=== PATIENT | female | born 1950 | race Caucasian/White ===

== ENCOUNTER 2021-08-01 16:13 | Inpatient (IN) | payer MEDICARE, OTHER ==
[~2021-08-01] VITALS: Ht 167.6 cm; Wt 107.8 kg
[2021-08-01] MEDS ORDERED: CARB1TAB22 PO (19:24)
[2021-08-01] MEDS ORDERED: POLY17PO5 PO (19:24)
[2021-08-01] MEDS ORDERED: CITA20TA9 PO (19:24)
[2021-08-01] MEDS ORDERED: TRAZ-120 PO (19:24)
[2021-08-01] MEDS ORDERED: METF500T16 PO (19:24)
[2021-08-01] MEDS ORDERED: PRAS10TA9 PO (19:24)
[2021-08-01] MEDS ORDERED: RISP0.5T24 PO (19:24)
[2021-08-01 19:34] VITALS: BP 181/98
[2021-08-01] MEDS ORDERED: POLYETHYLENE GLYCOL 3350 17 GM PACKET. PO PRN (19:45)
[2021-08-01] MEDS ORDERED: PIOG15TA42 PO (20:25)
[2021-08-01] MEDS ORDERED: ACET325T21 PO (20:25)
[2021-08-01] MEDS: traZODone 50 MG TABLET. PO SCH (20:59)
[2021-08-01] MEDS: CARBIDOPA/LEVODOPA 25/100MG TABLET PO SCH (21:00)
[2021-08-01] MEDS: ACETAMINOPHEN 325 MG TABLET PO PRN (21:00)
[2021-08-01] MEDS: risperiDONE 0.5 MG TABLET. PO SCH (21:00)
[2021-08-01] MEDS ORDERED: MAG HYDROX/AL HYDROX/SIMETH 30 ML ORAL.SUSP PO PRN (21:30)
[2021-08-01] MEDS ORDERED: METHYL SALICYLATE/MENTHOL TOPICAL OINTMENT 57GM TUBE. TP PRN (21:30)
[2021-08-01 22:21] LABS: BACTERIA,URINE 0 /HPF (0-FEW); BILIRUBIN,URINE NEG (NEG); CLARITY,URINE CLEAR; COLOR,URINE YELLOW; GLUCOSE,URINE NEG (NEG); NITRITE,URINE NEG (NEG); RBC,URINE 0 /HPF (0-2); SQUAMOUS EPITHELIAL CELL,UR OCC /LPF; UROBILINOGEN,URINE 0.2 mg/dL (0.2 mg/dL); WBC,URINE OCC /HPF (0-4)
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
[2021-08-02 06:05] VITALS: BP 156/85
[2021-08-02 06:56] LABS: BASO % 1 % (0-3); EOS # 0.2 x10^3/uL (0.0-0.7); EOS % 4 % (0-3); HEMATOCRIT 39.8 % (36.0-47.0); HEMOGLOBIN 13.3 g/dL (12.0-15.5); LYMPH # 2.1 x10^3/uL (1.0-4.8); LYMPH % 33 % (24-48); MEAN CORPUSCULAR HEMOGLOBIN 30 pg (25-35); MEAN CORPUSCULAR HGB CONC 33 g/dL (31-37); MEAN CORPUSCULAR VOLUME 90 fL (79-100); MONO # 0.5 x10^3/uL (0.0-1.1); MONO % 8 % (0-9); NEUT # 3.4 x10^3uL (1.8-7.7); NEUT % 55 % (31-73); PLATELET COUNT 166 x10^3/uL (140-400); RED BLOOD COUNT 4.42 x10^6/uL (3.50-5.40); RED CELL DISTRIBUTION WIDTH 14.1 % (11.5-14.5); WHITE BLOOD COUNT 6.3 x10^3/uL (4.0-11.0)
[2021-08-02 07:06] LABS: ALBUMIN 3.2 g/dL (3.4-5.0); CALCIUM 9.2 mg/dL (8.5-10.1); CREATININE 0.8 mg/dL (0.6-1.0); GFR 70.7; MAGNESIUM 1.8 mg/dL (1.8-2.4); POTASSIUM 3.8 mmol/L (3.5-5.1); TOTAL BILIRUBIN 0.4 mg/dL (0.2-1.0); TOTAL PROTEIN 6.3 g/dL (6.4-8.2)
[2021-08-02] MEDS: PRASUGREL 10 MG TABLET. PO SCH (08:08)
[2021-08-02] MEDS: CARBIDOPA/LEVODOPA 25/100MG TABLET PO SCH ×4 (08:08→20:01)
[2021-08-02] MEDS: risperiDONE 0.5 MG TABLET. PO SCH ×3 (08:08→20:01)
[2021-08-02] MEDS: metFORMIN 500 MG TABLET PO SCH ×2 (08:08→17:19)
[2021-08-02] MEDS: PIOGLITAZONE 15 MG TABLET. PO SCH (08:09)
[2021-08-02] MEDS ORDERED: CITALOPRAM 20 MG TABLET. PO SCH (09:00)
[2021-08-02] MEDS: ACETAMINOPHEN 325 MG TABLET PO PRN ×2 (12:14→20:41)
[2021-08-02 16:43] VITALS: BP 121/65
[2021-08-02 19:12] LABS: THYROID STIM HORMONE (TSH) 1.101 uIU/mL (0.358-3.740)
[2021-08-02] MEDS: NYSTATIN TOPICAL POWDER 15GM BOTTLE. TP SCH (20:01)
[2021-08-02] MEDS: traZODone 50 MG TABLET. PO SCH (20:01)
[2021-08-02] MEDS: LITHIUM CARBONATE 300 MG TABLET PO SCH (20:01)
[2021-08-02 22:08] LABS: THYROXINE 9.5 ug/dL (4.5-12.0)
--- NOTE | 2021-08-02 22:47 | PDOC ---
Exam Note: Efren Note: Please also refer to the separate dictated note~for this date of service dictated separately.~Patient seen individually. Discussed the patient with Nursing staff reviewed the chart.~Reviewed interim history and current functioning. Reviewed vital signs,~Labs/ Radiology~and current medications noted below. Continue current treatment with the changes noted in the dictated addendum note Assessment: Vital Signs/I&O: Vital Signs Date Time Temp Pulse Resp B/P (MAP) Pulse Ox O2 Delivery O2 Flow Rate FiO2 08/02/21 16:43 98.0 66 18 121/65 (83) 98 08/02/21 06:05 Room Air I & O 08/01/21 08/01/21 08/02/21 15:00 23:00 07:00 Intake Total 120 ml Balance 120 ml Labs: Laboratory Tests Test 08/02/21 06:20 08/02/21 14:55 08/02/21 16:43 08/02/21 19:16 White Blood Count 6.3 x10^3/uL (4.0-11.0) Red Blood Count 4.42 x10^6/uL (3.50-5.40) Hemoglobin 13.3 g/dL (12.0-15.5) Hematocrit 39.8 % (36.0-47.0) Mean Corpuscular Volume 90 fL (79-100) Mean Corpuscular Hemoglobin 30 pg (25-35) Mean Corpuscular Hemoglobin Concent 33 g/dL (31-37) Red Cell Distribution Width 14.1 % (11.5-14.5) Platelet Count 166 x10^3/uL (140-400) Neutrophils (%) (Auto) 55 % (31-73) Lymphocytes (%) (Auto) 33 % (24-48) Monocytes (%) (Auto) 8 % (0-9) Eosinophils (%) (Auto) 4 % (0-3) H Basophils (%) (Auto) 1 % (0-3) Neutrophils # (Auto) 3.4 x10^3uL (1.8-7.7) Lymphocytes # (Auto) 2.1 x10^3/uL (1.0-4.8) Monocytes # (Auto) 0.5 x10^3/uL (0.0-1.1) Eosinophils # (Auto) 0.2 x10^3/uL (0.0-0.7) Basophils # (Auto) 0.0 x10^3/uL (0.0-0.2) D-Dimer (Dede) 0.87 mg/L (0.00-0.50) H Sodium Level 135 mmol/L (136-145) L Potassium Level 3.8 mmol/L (3.5-5.1) Chloride Level 103 mmol/L (98-107) Carbon Dioxide Level 29 mmol/L (21-32) Anion Gap 3 (6-14) L Blood Urea Nitrogen 8 mg/dL (7-20) Creatinine 0.8 mg/dL (0.6-1.0) Estimated GFR (Cockcroft-Gault) 70.7 BUN/Creatinine Ratio 10 (6-20) Glucose Level 151 mg/dL (70-99) H Calcium Level 9.2 mg/dL (8.5-10.1) Magnesium Level 1.8 mg/dL (1.8-2.4) Iron Level 84 ug/dL (50-170) Total Iron Binding Capacity 268 ug/dL (250-450) Iron Saturation 31 % (15-34) Total Bilirubin 0.4 mg/dL (0.2-1.0) Aspartate Amino Transferase (AST) 30 U/L (15-37) Alanine Aminotransferase (ALT) 28 U/L (14-59) Alkaline Phosphatase 87 U/L (46-116) Total Protein 6.3 g/dL (6.4-8.2) L Albumin 3.2 g/dL (3.4-5.0) L Albumin/Globulin Ratio 1.0 (1.0-1.7) Triglycerides Level 162 mg/dL (0-150) H Cholesterol Level 124 mg/dL (0-200) LDL Cholesterol, Calculated 66 mg/dL (0-100) VLDL Cholesterol, Calculated 32 mg/dL (0-40) Non-HDL Cholesterol Calculated 98 mg/dL (0-129) HDL Cholesterol 26 mg/dL (40-60) L Cholesterol/HDL Ratio 4.0 Vitamin B12 Level 863 pg/mL (247-911) 25-Hydroxy Vitamin D Total 27.8 ng/mL (30-100) L Thyroid Stimulating Hormone (TSH) 1.101 uIU/mL (0.358-3.740) Thyroxine (T4) 9.5 ug/dL (4.5-12.0) Total Triiodothyronine (TT3) 117 ng/dL (71-180) Treponema pallidum Antibody Nonreactive (Nonreactive) Glucose (Fingerstick) 148 mg/dL (70-99) H 128 mg/dL (70-99) H 175 mg/dL (70-99) H Current Medications: Meds: Current Medications Medications (Trade) Dose Ordered Sig/Brynn Route PRN Reason Start Time Stop Time Status Last Admin Dose Admin Metformin HCl (Glucophage) 500 mg BIDWMEALS PO 08/02/21 08:00 08/02/21 17:19 Prasugrel (Effient) 10 mg DAILY PO 08/02/21 09:00 08/02/21 08:08 Pioglitazone HCl (Actos) 15 mg DAILY PO 08/02/21 09:00 08/02/21 08:09 Nystatin (Nystop) 1 devan BID TP 08/02/21 21:00 08/02/21 20:01 [place] Carbonate 300 mg HS PO 08/02/21 21:00 08/02/21 20:01 I have reviewed the current psychotropics carefully including drug interactions. Risk benefit ratio favors no change other than as noted in my dictated progress note. Diagnosis: Problems: (1) Bipolar disorder, current episode mixed, severe, with psychotic features (2) Anxiety disorder, unspecified (3) Impulse control disorder, unspecified HERBER SCHMITZ MD Aug 02, 2021 22:47
--- NOTE | 2021-08-02 23:19 | CONS ---
DATE OF CONSULTATION: 08/02/2021 ATTENDING PHYSICIAN: Dr. Schmitz We are asked to see this patient for medical consultation. HISTORY OF PRESENT ILLNESS: This is a very pleasant 71-year-old female from [place], [place]. She lives independently in an apartment complex. She has been depressed lately with some suicidal ideations. She is grieving the loss of her recent friend. She has had diminished self-care. She sees Dr. Mart Holly who is a colleague of mine. She used to work at [employer] and I have actually met her in the past over 20 years ago[address] She sees Dr. Buitrago as a primary care physician. When I spoke with her, her affect was very pleasant. She did not appear suicidal. She was very alert, saying we had a very good conversation. Her main complaint indicates she is diabetic and she has intertriginous area with fungal infection and she wants nystatin powder. I reassured her we will get this available for her. PAST MEDICAL HISTORY: Significant for type 2 diabetes, degenerative arthritis, underlying depression, long QT syndrome, bipolar disorder and generalized anxiety. There is some early Parkinson's disease as well as celiac disease. She has had a hairline fracture of the left ankle recently that has been managed. CURRENT MEDICATIONS: Include the following: She takes Tylenol, Sinemet one tablet q.i.d., citalopram, metformin, Actos, MiraLax, Effient, risperidone, and trazodone. ALLERGIES: She has no known drug allergies. SOCIAL HISTORY: She is a nonsmoker, nondrinker. FAMILY HISTORY: Her family history is interesting, her father at an early age, he was a senior assistant manager. She is retired. 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 REVIEW OF SYSTEMS: Significant for the recent hairline fracture. All other systems reviewed and turned to be negative. PHYSICAL EXAMINATION: GENERAL: When I saw her, this is a pleasant, alert female. VITAL SIGNS: Her initial vital signs showed a blood pressure of 156/85. She was afebrile, oxygen saturation 96% on room air, pulse is 85 and regular. HEENT: Head is without trauma. The pupils are reactive. Sclerae nonicteric. Oropharynx is clear. NECK: Supple. LUNGS: Otherwise clear. CARDIOVASCULAR: Regular heart tones. No gallops. ABDOMEN: Obese, protuberant. No organomegaly. Normoactive bowel sounds. EXTREMITIES: Showed the left ankle to be immobilized. There is minimal swelling. NEUROLOGIC: Function focally intact. Speech is fluent. 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 SKIN: Warm and dry. PERTINENT LABORATORY STUDIES: The hemoglobin is 13.3 g/dL with a white count of 6300. Electrolytes all within normal range. Nonfasting blood sugar 151 mg/dL. Transaminases and liver functions were all normal. ASSESSMENT: 1. This 71-year-old female has some suicidal ideations. Currently, she has a very normal good affect, and we had a very productive conversation. 2. Type 2 diabetes. 3. Mild intertriginous fungal infection related to diabetes. 4. Obesity. 5. History of bipolar disorder. 6. Early Parkinson's disease, although it is not clinically severe. RECOMMENDATIONS: 1. I have reviewed her medication. We should continue that at the scheduled dose. 2. I would recommend continuation of her nystatin powder twice a day. 3. She is stable from medical standpoint. Thank you again for asking me to see this patient for medical consultation. We should gladly follow along during her inpatient stay. ALEK/ROXANA DR: ALEK/raquel TID: [id number] CC: HERBER SCHMITZ MD
[2021-08-03 05:43] LABS: HEMOGLOBIN A1C 8.1 % (4.8-5.6)
[2021-08-03 06:38] VITALS: BP 168/91
--- NOTE | 2021-08-03 06:44 | EKG ---
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
[2021-08-03] MEDS: metFORMIN 500 MG TABLET PO SCH ×2 (08:20→17:10)
[2021-08-03] MEDS: CARBIDOPA/LEVODOPA 25/100MG TABLET PO SCH ×4 (08:20→20:10)
[2021-08-03] MEDS: PRASUGREL 10 MG TABLET. PO SCH (08:20)
[2021-08-03] MEDS: PIOGLITAZONE 15 MG TABLET. PO SCH (08:20)
[2021-08-03] MEDS: NYSTATIN TOPICAL POWDER 15GM BOTTLE. TP SCH ×2 (08:21→22:40)
[2021-08-03] MEDS: risperiDONE 0.5 MG TABLET. PO SCH ×3 (08:21→20:10)
[2021-08-03] MEDS: ACETAMINOPHEN 325 MG TABLET PO PRN ×3 (08:23→20:10)
[2021-08-03 16:26] VITALS: BP 148/83
[2021-08-03] MEDS: traZODone 50 MG TABLET. PO SCH (20:09)
[2021-08-03] MEDS: LITHIUM CARBONATE 300 MG TABLET PO SCH (20:10)
--- NOTE | 2021-08-03 22:15 | PDOC ---
Exam Note: Efren Note: Please also refer to the separate dictated note~for this date of service dictated separately.~Patient seen individually. Discussed the patient with Nursing staff reviewed the chart.~Reviewed interim history and current functioning. Reviewed vital signs,~Labs/ Radiology~and current medications noted below. Continue current treatment with the changes noted in the dictated addendum note Assessment: Vital Signs/I&O: Vital Signs Date Time Temp Pulse Resp B/P (MAP) Pulse Ox O2 Delivery O2 Flow Rate FiO2 08/03/21 16:26 97.4 85 18 148/83 (104) 95 08/03/21 06:38 Room Air I & O 08/02/21 08/02/21 08/03/21 15:00 23:00 07:00 Intake Total 720 ml 780 ml Balance 720 ml 780 ml Labs: Laboratory Tests Test 08/03/21 07:38 08/03/21 11:26 08/03/21 16:34 08/03/21 19:22 Glucose (Fingerstick) 168 mg/dL (70-99) H 238 mg/dL (70-99) H 164 mg/dL (70-99) H 193 mg/dL (70-99) H Current Medications: Meds: Laboratory Tests Test 08/03/21 07:38 08/03/21 11:26 08/03/21 16:34 08/03/21 19:22 Glucose (Fingerstick) 168 mg/dL 238 mg/dL 164 mg/dL 193 mg/dL Current Medications Medications (Trade) Dose Ordered Sig/Brynn Route PRN Reason Start Time Stop Time Status Last Admin Dose Admin Carbidopa/Levodopa (Sinemet 25/100) 1 tab QID PO 08/01/21 21:00 08/03/21 20:10 Citalopram Hydrobromide (CeleXA) 20 mg DAILY PO 08/02/21 09:00 08/01/21 21:37 DC Metformin HCl (Glucophage) 500 mg BIDWMEALS PO 08/02/21 08:00 08/03/21 17:10 Polyethylene Glycol (miraLAX) 17 gm PRN DAILY PRN PO CONSTIPATION 08/01/21 19:45 Prasugrel (Effient) 10 mg DAILY PO 08/02/21 09:00 08/03/21 08:20 Risperidone (RisperDAL) 0.5 mg TID PO 08/01/21 21:00 08/03/21 20:10 Trazodone HCl (Desyrel) 50 mg HS PO 08/01/21 21:00 08/03/21 20:09 Acetaminophen (Tylenol) 650 mg PRN Q4HRS PRN PO PAIN 08/01/21 20:30 08/03/21 20:10 Pioglitazone HCl (Actos) 15 mg DAILY PO 08/02/21 09:00 08/03/21 08:20 Multi-Ingredient Ointment (Analgesic [place]) 1 devan PRN QID PRN TP MUSCLE PAIN 08/01/21 21:30 Al Hydroxide/Mg Hydroxide (Mylanta Plus Xs) 15 ml PRN AFTMEALHC PRN PO DYSPEPSIA 08/01/21 21:30 Nystatin (Nystop) 1 devan BID TP 08/02/21 21:00 08/03/21 08:21 [place] Carbonate 300 mg HS PO 08/02/21 21:00 08/03/21 20:10 I have reviewed the current psychotropics carefully including drug interactions. Risk benefit ratio favors no change other than as noted in my dictated progress note. Diagnosis: Problems: (1) Impulse control disorder, unspecified (2) Anxiety disorder, unspecified (3) Bipolar disorder, current episode mixed, severe, with psychotic features HERBER SCHMITZ MD Aug 03, 2021 22:15
[2021-08-04 06:20] VITALS: BP 115/71
--- NOTE | 2021-08-04 06:36 | PDOC ---
Exam Note: Efren Note: This note is a late entry for 08/02/2021 covers elements not covered in my initial note. Subjective: The patient was seen individually in the evening of 08/02/2021 with Abbi SALCEDO, discussed and reviewed the chart. The patient slept 5-1/2 hours previous night. She has been pleasant, takes medications whole. She denies suicidal ideation, plans or intent. I reviewed her history at length and she has responded very well to lithium in the past. We will have to have someone at the facility dispense her medications daily. Dr. Holly, her psychiatrist has also sent a message that concurring that lithium may be an appropriate option for her bipolar disorder. We will initiate at 300 mg h.s. Check CBC, CMP, lithium level in 3 days. Review of Systems: Impaired ambulation in wheelchair. No CV, , pulmonary, eye system symptoms on review. Mental Status Exam: The patient is reasonably oriented. Speech coherent, less pressured. Abstraction fair. Computation impaired. Language function intact. Mood and affect is improved. Laboratory Data: Reviewed. Impression: Bipolar disorder depressed with psychotic features. Anxiety disorder unspecified. Impulse control disorder unspecified. Plan: Continue psychotropics from initial note. Start lithium 300 mg h.s. Check labs and a level. Adjust to reach therapeutic level. Maintain Risperdal 0.5 mg t.i.d., trazodone 50 mg h.s. She remains on Sinemet for Parkinsons. Assessment: Vital Signs/I&O: Vital Signs Date Time Temp Pulse Resp B/P (MAP) Pulse Ox O2 Delivery O2 Flow Rate FiO2 08/04/21 06:20 97.9 82 16 115/71 (86) 98 08/03/21 06:38 Room Air I & O 08/03/21 08/03/21 08/04/21 15:00 23:00 07:00 Intake Total 480 ml 600 ml Balance 480 ml 600 ml Labs: Laboratory Tests Test 08/03/21 07:38 08/03/21 11:26 08/03/21 16:34 08/03/21 19:22 Glucose (Fingerstick) 168 mg/dL (70-99) H 238 mg/dL (70-99) H 164 mg/dL (70-99) H 193 mg/dL (70-99) H Current Medications: Meds: Laboratory Tests Test 08/03/21 07:38 08/03/21 11:26 08/03/21 16:34 08/03/21 19:22 Glucose (Fingerstick) 168 mg/dL 238 mg/dL 164 mg/dL 193 mg/dL Current Medications Medications (Trade) Dose Ordered Sig/Brynn Route PRN Reason Start Time Stop Time Status Last Admin Dose Admin Carbidopa/Levodopa (Sinemet 25/100) 1 tab QID PO 08/01/21 21:00 08/03/21 20:10 Citalopram Hydrobromide (CeleXA) 20 mg DAILY PO 08/02/21 09:00 08/01/21 21:37 DC Metformin HCl (Glucophage) 500 mg BIDWMEALS PO 08/02/21 08:00 08/03/21 17:10 Polyethylene Glycol (miraLAX) 17 gm PRN DAILY PRN PO CONSTIPATION 08/01/21 19:45 Prasugrel (Effient) 10 mg DAILY PO 08/02/21 09:00 08/03/21 08:20 Risperidone (RisperDAL) 0.5 mg TID PO 08/01/21 21:00 08/03/21 20:10 Trazodone HCl (Desyrel) 50 mg HS PO 08/01/21 21:00 08/03/21 20:09 Acetaminophen (Tylenol) 650 mg PRN Q4HRS PRN PO PAIN 08/01/21 20:30 08/03/21 20:10 Pioglitazone HCl (Actos) 15 mg DAILY PO 08/02/21 09:00 08/03/21 08:20 Multi-Ingredient Ointment (Analgesic [place]) 1 devan PRN QID PRN TP MUSCLE PAIN 08/01/21 21:30 Al Hydroxide/Mg Hydroxide (Mylanta Plus Xs) 15 ml PRN AFTMEALHC PRN PO DYSPEPSIA 08/01/21 21:30 Nystatin (Nystop) 1 devan BID TP 08/02/21 21:00 08/03/21 22:40 [place] Carbonate 300 mg HS PO 08/02/21 21:00 08/03/21 20:10 I have reviewed the current psychotropics carefully including drug interactions. Risk benefit ratio favors no change other than as noted in my dictated progress note. Diagnosis: Problems: (1) Impulse control disorder, unspecified (2) Anxiety disorder, unspecified (3) Bipolar disorder, current episode mixed, severe, with psychotic features HERBER SCHMITZ MD Aug 04, 2021 06:36
--- NOTE | 2021-08-04 06:47 | PDOC ---
Exam Note: fEren Note: This note is a late entry for 08/03/2021 covers elements not covered in my initial note. Subjective: The patient was reviewed at treatment team meeting individually in the morning on 08/03/2021 with Jennifer Pearson (social professionals), Paty, activity therapy and Abbi SALCEDO, discussed and reviewed the chart. The patient slept 6 hours previous night. Records from Dr. Carroll is still awaited but note is made of Dr. Jones support for lithium for her bipolar disorder. Also discussed in the evening with Judith Loya RN later in the evening. Review of Systems: Impaired ambulation in wheelchair. No CV, , pulmonary, eye system symptoms on review. Mental Status Exam: The patient is reasonably oriented. Speech coherent less pressured. Abstraction fair. Computation impaired. Language function intact. Mood and affect is remains labile, less so than before. Laboratory Data: Reviewed. Impression: Bipolar 1 disorder mixed with psychotic features. Anxiety disorder unspecified. Impulse control disorder unspecified. Plan: Continue psychotropics from initial note. Adjust further as clinically indicated. Assessment: Vital Signs/I&O: Vital Signs Date Time Temp Pulse Resp B/P (MAP) Pulse Ox O2 Delivery O2 Flow Rate FiO2 08/04/21 06:20 97.9 82 16 115/71 (86) 98 08/03/21 06:38 Room Air I & O 08/03/21 08/03/21 08/04/21 15:00 23:00 07:00 Intake Total 480 ml 600 ml Balance 480 ml 600 ml Labs: Laboratory Tests Test 08/03/21 07:38 08/03/21 11:26 08/03/21 16:34 08/03/21 19:22 Glucose (Fingerstick) 168 mg/dL (70-99) H 238 mg/dL (70-99) H 164 mg/dL (70-99) H 193 mg/dL (70-99) H Current Medications: Meds: Laboratory Tests Test 08/03/21 07:38 08/03/21 11:26 08/03/21 16:34 08/03/21 19:22 Glucose (Fingerstick) 168 mg/dL 238 mg/dL 164 mg/dL 193 mg/dL Current Medications Medications (Trade) Dose Ordered Sig/Brynn Route PRN Reason Start Time Stop Time Status Last Admin Dose Admin Carbidopa/Levodopa (Sinemet 25/100) 1 tab QID PO 08/01/21 21:00 08/03/21 20:10 Citalopram Hydrobromide (CeleXA) 20 mg DAILY PO 08/02/21 09:00 08/01/21 21:37 DC Metformin HCl (Glucophage) 500 mg BIDWMEALS PO 08/02/21 08:00 08/03/21 17:10 Polyethylene Glycol (miraLAX) 17 gm PRN DAILY PRN PO CONSTIPATION 08/01/21 19:45 Prasugrel (Effient) 10 mg DAILY PO 08/02/21 09:00 08/03/21 08:20 Risperidone (RisperDAL) 0.5 mg TID PO 08/01/21 21:00 08/03/21 20:10 Trazodone HCl (Desyrel) 50 mg HS PO 08/01/21 21:00 08/03/21 20:09 Acetaminophen (Tylenol) 650 mg PRN Q4HRS PRN PO PAIN 08/01/21 20:30 08/03/21 20:10 Pioglitazone HCl (Actos) 15 mg DAILY PO 08/02/21 09:00 08/03/21 08:20 Multi-Ingredient Ointment (Analgesic [place]) 1 devan PRN QID PRN TP MUSCLE PAIN 08/01/21 21:30 Al Hydroxide/Mg Hydroxide (Mylanta Plus Xs) 15 ml PRN AFTMEALHC PRN PO DYSPEPSIA 08/01/21 21:30 Nystatin (Nystop) 1 devan BID TP 08/02/21 21:00 08/03/21 22:40 [place] Carbonate 300 mg HS PO 08/02/21 21:00 08/03/21 20:10 I have reviewed the current psychotropics carefully including drug interactions. Risk benefit ratio favors no change other than as noted in my dictated progress note. Diagnosis: Problems: (1) Bipolar disorder, current episode mixed, severe, with psychotic features (2) Anxiety disorder, unspecified (3) Impulse control disorder, unspecified HERBER SCHMITZ MD Aug 04, 2021 06:47
[2021-08-04] MEDS: PRASUGREL 10 MG TABLET. PO SCH (08:29)
[2021-08-04] MEDS: metFORMIN 500 MG TABLET PO SCH ×2 (08:29→17:31)
[2021-08-04] MEDS: NYSTATIN TOPICAL POWDER 15GM BOTTLE. TP SCH ×2 (08:29→21:04)
[2021-08-04] MEDS: PIOGLITAZONE 15 MG TABLET. PO SCH (08:30)
[2021-08-04] MEDS: CARBIDOPA/LEVODOPA 25/100MG TABLET PO SCH ×4 (08:30→21:04)
[2021-08-04] MEDS: risperiDONE 0.5 MG TABLET. PO SCH ×3 (08:30→21:04)
[2021-08-04] MEDS: ACETAMINOPHEN 325 MG TABLET PO PRN ×3 (08:32→21:13)
[2021-08-04 16:06] VITALS: BP 122/62
[2021-08-04] MEDS: traZODone 50 MG TABLET. PO SCH (21:04)
[2021-08-04] MEDS: LITHIUM CARBONATE 300 MG TABLET PO SCH (21:04)
--- NOTE | 2021-08-04 22:01 | PDOC ---
Exam Note: Efren Note: Please also refer to the separate dictated note~for this date of service dictated separately.~Patient seen individually. Discussed the patient with Nursing staff reviewed the chart.~Reviewed interim history and current functioning. Reviewed vital signs,~Labs/ Radiology~and current medications noted below. Continue current treatment with the changes noted in the dictated addendum note Assessment: Vital Signs/I&O: Vital Signs Date Time Temp Pulse Resp B/P (MAP) Pulse Ox O2 Delivery O2 Flow Rate FiO2 08/04/21 16:06 97.5 75 18 122/62 (82) 99 08/03/21 06:38 Room Air I & O 08/03/21 08/03/21 08/04/21 15:00 23:00 07:00 Intake Total 480 ml 600 ml Balance 480 ml 600 ml Labs: Laboratory Tests Test 08/04/21 07:56 Glucose (Fingerstick) 163 mg/dL (70-99) H Current Medications: Meds: Laboratory Tests Test 08/04/21 07:56 Glucose (Fingerstick) 163 mg/dL Current Medications Medications (Trade) Dose Ordered Sig/Brynn Route PRN Reason Start Time Stop Time Status Last Admin Dose Admin Carbidopa/Levodopa (Sinemet 25/100) 1 tab QID PO 08/01/21 21:00 08/04/21 21:04 Citalopram Hydrobromide (CeleXA) 20 mg DAILY PO 08/02/21 09:00 08/01/21 21:37 DC Metformin HCl (Glucophage) 500 mg BIDWMEALS PO 08/02/21 08:00 08/04/21 17:31 Polyethylene Glycol (miraLAX) 17 gm PRN DAILY PRN PO CONSTIPATION 08/01/21 19:45 Prasugrel (Effient) 10 mg DAILY PO 08/02/21 09:00 08/04/21 08:29 Risperidone (RisperDAL) 0.5 mg TID PO 08/01/21 21:00 08/04/21 21:04 Trazodone HCl (Desyrel) 50 mg HS PO 08/01/21 21:00 08/04/21 21:04 Acetaminophen (Tylenol) 650 mg PRN Q4HRS PRN PO PAIN 08/01/21 20:30 08/04/21 21:13 Pioglitazone HCl (Actos) 15 mg DAILY PO 08/02/21 09:00 08/04/21 08:30 Multi-Ingredient Ointment (Analgesic [place]) 1 devan PRN QID PRN TP MUSCLE PAIN 08/01/21 21:30 Al Hydroxide/Mg Hydroxide (Mylanta Plus Xs) 15 ml PRN AFTMEALHC PRN PO DYSPEPSIA 08/01/21 21:30 Nystatin (Nystop) 1 devan BID TP 08/02/21 21:00 08/04/21 21:04 [place] Carbonate 300 mg HS PO 08/02/21 21:00 08/04/21 21:04 I have reviewed the current psychotropics carefully including drug interactions. Risk benefit ratio favors no change other than as noted in my dictated progress note. Diagnosis: Problems: (1) Impulse control disorder, unspecified (2) Anxiety disorder, unspecified (3) Bipolar disorder, current episode mixed, severe, with psychotic features HERBER SCHMITZ MD Aug 04, 2021 22:01
[2021-08-05 06:15] VITALS: BP 108/66
[2021-08-05] MEDS: risperiDONE 0.5 MG TABLET. PO SCH ×3 (08:22→20:52)
[2021-08-05] MEDS: PRASUGREL 10 MG TABLET. PO SCH (08:23)
[2021-08-05] MEDS: PIOGLITAZONE 15 MG TABLET. PO SCH (08:23)
[2021-08-05] MEDS: NYSTATIN TOPICAL POWDER 15GM BOTTLE. TP SCH ×2 (08:23→20:52)
[2021-08-05] MEDS: ACETAMINOPHEN 325 MG TABLET PO PRN ×2 (08:23→12:24)
[2021-08-05] MEDS: CARBIDOPA/LEVODOPA 25/100MG TABLET PO SCH ×4 (08:23→20:52)
[2021-08-05] MEDS: metFORMIN 500 MG TABLET PO SCH ×2 (08:23→17:26)
[2021-08-05 10:10] LABS: HEMATOCRIT 43.2 % (36.0-47.0); HEMOGLOBIN 14.2 g/dL (12.0-15.5); RED BLOOD COUNT 4.75 x10^6/uL (3.50-5.40); RED CELL DISTRIBUTION WIDTH 14.1 % (11.5-14.5); WHITE BLOOD COUNT 5.9 x10^3/uL (4.0-11.0)
[2021-08-05 10:26] LABS: ALBUMIN 3.6 g/dL (3.4-5.0); ALBUMIN/GLOBULIN RATIO 1.1 (1.0-1.7); CALCIUM 9.8 mg/dL (8.5-10.1); CREATININE 0.8 mg/dL (0.6-1.0); GFR 70.7; TOTAL BILIRUBIN 0.4 mg/dL (0.2-1.0); TOTAL PROTEIN 6.9 g/dL (6.4-8.2)
[2021-08-05 16:05] VITALS: BP 133/83
[2021-08-05] MEDS: LITHIUM CARBONATE 300 MG TABLET PO SCH (20:51)
[2021-08-05] MEDS: traZODone 50 MG TABLET. PO SCH (20:51)
[2021-08-06 06:35] VITALS: BP 122/72
[2021-08-06] MEDS: metFORMIN 500 MG TABLET PO SCH ×2 (08:22→17:25)
[2021-08-06] MEDS: NYSTATIN TOPICAL POWDER 15GM BOTTLE. TP SCH ×2 (08:22→20:12)
[2021-08-06] MEDS: ACETAMINOPHEN 325 MG TABLET PO PRN ×2 (08:22→12:21)
[2021-08-06] MEDS: PIOGLITAZONE 15 MG TABLET. PO SCH (08:22)
[2021-08-06] MEDS: CARBIDOPA/LEVODOPA 25/100MG TABLET PO SCH ×4 (08:22→20:12)
[2021-08-06] MEDS: risperiDONE 0.5 MG TABLET. PO SCH ×3 (08:23→20:12)
[2021-08-06] MEDS: PRASUGREL 10 MG TABLET. PO SCH (08:23)
--- NOTE | 2021-08-06 12:01 | PDOC ---
Exam Note: Efren Note: This note is a late entry for 08/04/2021 covers elements not covered in my initial note. Subjective: The patient was seen individually in the evening of 08/04/2021 with Mary SALCEDO, discussed and reviewed the chart. The patient slept 6 hours previous night. She has denied suicidal ideation during the day today but this evening as I met with her in her room, she was extremely anxious, distraught, tearful stating she was fearful of another demented male patient who was just admitted to the unit. I did discuss with nursing staff and they will separate the two of them. She is tolerating the lithium and the level will be checked the morning of 08/05. Review of Systems: Impaired ambulation in wheelchair. No CV, , pulmonary, eye system symptoms on review. She does complain of anxiety. Mental Status Exam: The patient is reasonably oriented. Speech coherent. Abstraction fair. Computation impaired. Language function intact. Attention span short. Mood and affect is remains somewhat grandiose, labile at times and other times depressed. No suicidal ideation. Laboratory Data: Reviewed. Impression: Bipolar 1 disorder mixed with psychotic features. Anxiety disorder unspecified. Impulse control disorder unspecified. Plan: Continue psychotropics from initial note. Check lithium level. Adjust thereafter. Maintain Risperdal 0.5 mg t.i.d. She remains on Sinemet for her Parkinsons. Make further adjustments as clinically indicated. Please be noted Dr. Brice will cover for me from 08/05 through 08/16/2021. Assessment: Vital Signs/I&O: Vital Signs Date Time Temp Pulse Resp B/P (MAP) Pulse Ox O2 Delivery O2 Flow Rate FiO2 08/06/21 06:35 98.0 71 18 122/72 (89) 98 08/03/21 06:38 Room Air I & O 08/05/21 08/05/21 08/06/21 15:00 23:00 07:00 Intake Total 840 ml 360 ml Balance 840 ml 360 ml Labs: Laboratory Tests Test 08/06/21 07:37 Glucose (Fingerstick) 148 mg/dL (70-99) H Current Medications: Meds: Laboratory Tests Test 08/06/21 07:37 Glucose (Fingerstick) 148 mg/dL Current Medications Medications (Trade) Dose Ordered Sig/Brynn Route PRN Reason Start Time Stop Time Status Last Admin Dose Admin Carbidopa/Levodopa (Sinemet 25/100) 1 tab QID PO 08/01/21 21:00 08/06/21 08:22 Citalopram Hydrobromide (CeleXA) 20 mg DAILY PO 08/02/21 09:00 08/01/21 21:37 DC Metformin HCl (Glucophage) 500 mg BIDWMEALS PO 08/02/21 08:00 08/06/21 08:22 Polyethylene Glycol (miraLAX) 17 gm PRN DAILY PRN PO CONSTIPATION 08/01/21 19:45 Prasugrel (Effient) 10 mg DAILY PO 08/02/21 09:00 08/06/21 08:23 Risperidone (RisperDAL) 0.5 mg TID PO 08/01/21 21:00 08/06/21 08:23 Trazodone HCl (Desyrel) 50 mg HS PO 08/01/21 21:00 08/05/21 20:51 Acetaminophen (Tylenol) 650 mg PRN Q4HRS PRN PO PAIN 08/01/21 20:30 08/06/21 08:22 Pioglitazone HCl (Actos) 15 mg DAILY PO 08/02/21 09:00 08/06/21 08:22 Multi-Ingredient Ointment (Analgesic [place]) 1 devan PRN QID PRN TP MUSCLE PAIN 08/01/21 21:30 Al Hydroxide/Mg Hydroxide (Mylanta Plus Xs) 15 ml PRN AFTMEALHC PRN PO DYSPEPSIA 08/01/21 21:30 Nystatin (Nystop) 1 devan BID TP 08/02/21 21:00 08/06/21 08:22 [place] Carbonate 300 mg HS PO 08/02/21 21:00 08/05/21 20:51 I have reviewed the current psychotropics carefully including drug interactions. Risk benefit ratio favors no change other than as noted in my dictated progress note. Diagnosis: Problems: (1) Impulse control disorder, unspecified (2) Anxiety disorder, unspecified (3) Bipolar disorder, current episode mixed, severe, with psychotic features HERBER SCHMITZ MD Aug 06, 2021 12:01
[2021-08-06 15:52] VITALS: BP 133/79
[2021-08-06] MEDS: LITHIUM CARBONATE 300 MG TABLET PO SCH (20:12)
[2021-08-06] MEDS: traZODone 50 MG TABLET. PO SCH (20:12)
--- NOTE | 2021-08-06 20:15 | PN ---
DATE: 08/05/2021 SUBJECTIVE: The patient was seen today, met with the staff. Chart was reviewed. also covering for Dr. Lopez. This is a late entry for the service date 08/05/2021. Staff reports increased anxiety, fearful and also delusional, having visual hallucinations. OBSERVATION: VITAL SIGNS: Temperature 97.3, blood pressure 108/66, pulse 75, respirations 16, O2 sat 97%. Slept about 5 hours last night. Her appetite is fair. CURRENT MEDICATIONS: The patient's medications reviewed. She is currently on lithium carbonate 300 mg at night, trazodone 50 mg at night, Risperdal 0.5 mg 3 times a day. She is also on Sinemet 25/100 4 times a day. LABORATORY DATA: The patient's behavior remains the same. The patient also having difficulty with her thinking processes. ASSESSMENT: 1. Bipolar disorder, mixed episode with psychotic features. 2. Impulse control disorder, unspecified. PLAN: To continue the current treatment plan. Length of stay is 7-[address]: Jose TID: [id number]
--- NOTE | 2021-08-07 00:12 | PN ---
DATE: 08/06/2021 SUBJECTIVE: The patient was seen today, met with the staff. Chart was reviewed and also covering for Dr. Lopez. Staff reports that she has been expressing negative thinking, suicidal thoughts and made a statement that she does not want to be on lithium and if she is going to be sent home with lithium, she is going to kill herself. After confronting her about a statement, the patient denied that she is really suicidal, but she has a lot of fear and anxiety about taking lithium. The patient also stated she is afraid she may overdose on lithium. The patient given explanations about the medication, the benefits, side effects and also to monitor her medication regularly and also blood levels and then the patient settled. OBSERVATION: VITAL SIGNS: Temperature 98, blood pressure 127/79, pulse 71, respirations 18, O2 sat 98%. GENERAL: Slept about 6 hours last night. CURRENT MEDICATIONS: The patient's current medications include lithium carbonate 300 mg at night, trazodone 50 mg at night, Risperdal 0.5 mg t.i.d. She is also on Sinemet. The patient currently not having any psychotic symptoms. No overt manic symptoms. The patient admits she has been depressed off and on for several years. LABORATORY DATA: The patient's lab reviewed. The patient is not having any side effects to the medications. ASSESSMENT: 1. Bipolar disorder, mixed with psychotic features. 2. Impulse control disorder, unspecified. PLAN: To continue with treatment. LENGTH OF STAY: Seven days. ALMAZ DR: Jose TID: [id number]
[2021-08-07 06:12] VITALS: BP 105/62
[2021-08-07] MEDS: CARBIDOPA/LEVODOPA 25/100MG TABLET PO SCH ×4 (08:16→20:10)
[2021-08-07] MEDS: risperiDONE 0.5 MG TABLET. PO SCH ×3 (08:16→20:10)
[2021-08-07] MEDS: PIOGLITAZONE 15 MG TABLET. PO SCH (08:16)
[2021-08-07] MEDS: NYSTATIN TOPICAL POWDER 15GM BOTTLE. TP SCH ×2 (08:16→20:10)
[2021-08-07] MEDS: metFORMIN 500 MG TABLET PO SCH ×2 (08:16→16:58)
[2021-08-07] MEDS: PRASUGREL 10 MG TABLET. PO SCH (08:17)
[2021-08-07] MEDS: ACETAMINOPHEN 325 MG TABLET PO PRN ×2 (09:28→17:02)
--- NOTE | 2021-08-07 13:16 | TX PLAN ---
Interdisciplinary Tx Plan Admission Information Aug 01, 2021 at 19:26 Legal Status (on Admission): Voluntary DPOA/Guardian Name: Pt is a self-sign Contact Other Contact Name: Reji Gillespie Other Contact Verified Code Status: Full Code Allergies: Coded Allergies: No Known Drug Allergies (Unverified , 08/01/21) Diagnoses Primary Diagnosis: Bipolar, Depression Problem in Patient's Words: "I tried to kill myself a couple weeks ago. In the process I fell off the bed and they sent me to the hospital". Additional Admission Comments: According to the intake, pt is SI and has a plan to cut self with nails or push pins in the wall, grieving loss of friend and decreased self-care Problems Active Problems: labile mood SI thoughts Inactive Problems: medication compliant Pt Strengths/Limitations Ability for [place]: Fair Cognitive Functioning/Ability: Fair Communication Skills/Ability: Fair Financial Resources: Fair Insight/Judgement: Fair Intellectual Ability: Fair Physical Health: Fair Social Skills: Poor Stability in Family: Poor Stability in School/Work: Poor Verbal Skills: Good Discharge Criteria Discharge Criteria: Able meet basic life need, No need for close observ., Adequate arrangements @DC, Verbal commit aftercare, Improved behavior, Improved mood/thought Preliminary Discharge Plan Preliminary DC Plan: Other Special Precautions Fall Risk: Low Initial D/C Plan Potential to return to rehab once ready for discharge. Identified Discharge Needs: continued psychiatric follow-up consider nursing Currently Utilized Resources Currently Utilized Resources/P: Primary Care Physician Psychiatrist Counselor Identified Problems/Hx/Goals Objectives/Short-Term Goals Short Term Goals: Dec. Anxiety/Panic, Dec. Symp. Depression, No Suicidal/Bambi. ideation, Promote Coping Skill Short Term Goals in Patient's: Get my meds together and be more stable Interventions/Frequency Staff Interventions/Frequency&: Psychiatrist to assess pt at least 3x per week for medication management. Social Work to assess pt at least 2x per week to identify barriers to care and finalize discharge plans. Nursing to assess medication side effects, behavior modification and complete 15 minute checks daily. Encourage participation in group activities (if applicable) or1:1 engagement based off activity dept goals. History Vocational History: Pt worked at [employer] for 23 years. Education: Pt graduated the 12th grade, then attended school at [employer] in [place] for her BA. in Maltese and Library Science. Pt then received two Masters in Psychology and Library Science. Community Follow-up PCP Psychiatry Counseling Treatment Plan Explained Patient/Improvement Spec had this treatment plan explained to him/her as indicated by the signature below and has been given the opportunity to ask questions and make suggestions: Date: Patient/Improvement Spec Signature: Patient/Improvement Spec Decline: No (Pt is an active participant withing her POC.) KAYLIN FREEMAN Aug 07, 2021 13:16
[2021-08-07 15:59] VITALS: BP 138/85
[2021-08-07] MEDS: LITHIUM CARBONATE 300 MG TABLET PO SCH (20:10)
[2021-08-07] MEDS: traZODone 50 MG TABLET. PO SCH (20:10)
[2021-08-08 05:15] VITALS: BP 122/59
[2021-08-08] MEDS: PRASUGREL 10 MG TABLET. PO SCH (08:44)
[2021-08-08] MEDS: risperiDONE 0.5 MG TABLET. PO SCH ×3 (08:44→20:12)
[2021-08-08] MEDS: CARBIDOPA/LEVODOPA 25/100MG TABLET PO SCH ×4 (08:44→20:12)
[2021-08-08] MEDS: NYSTATIN TOPICAL POWDER 15GM BOTTLE. TP SCH ×2 (08:44→20:12)
[2021-08-08] MEDS: PIOGLITAZONE 15 MG TABLET. PO SCH (08:44)
[2021-08-08] MEDS: metFORMIN 500 MG TABLET PO SCH ×2 (08:44→17:23)
[2021-08-08 15:59] VITALS: BP 149/79
[2021-08-08] MEDS: traZODone 50 MG TABLET. PO SCH (20:12)
[2021-08-08] MEDS: LITHIUM CARBONATE 300 MG TABLET PO SCH (20:12)
[2021-08-08] MEDS: ACETAMINOPHEN 325 MG TABLET PO PRN (20:18)
--- NOTE | 2021-08-09 01:18 | PN ---
This is a late entry for the service date 08/07/2021. SUBJECTIVE: The patient was seen today, met with the staff, chart reviewed. Staff reports continued behavior problems, constantly talking about suicide when she leaves this place. The patient also focused on her medications including lithium almost to the point of being obsessive, worried about being on it, worried about the side effects. The patient is asking repeatedly the same question. The patient denies of having made any suicidal attempt recently. The patient also states she is not suicidal at this time, but when she leaves, she may become suicidal because she may forget to take her lithium. The patient denies of any active suicidal thoughts or plans at this time. The patient apparently has experienced multiple losses of several members of the family in the past and also periods of depression. OBSERVATION: VITAL SIGNS: Temperature 98.2, blood pressure 105/62, pulse 75, respirations 18, O2 sat 97%. GENERAL: Slept about 6 hours last night. The patient's appetite improved. CURRENT MEDICATIONS: Include lithium carbonate 300 mg at night, trazodone 50 mg at night, Risperdal 0.5 mg 3 times a day. The patient is currently not exhibiting any psychotic symptoms. The patient is also on Sinemet. LABORATORY DATA: The patient's lab reviewed. ASSESSMENT: 1. Bipolar disorder, mixed with psychotic features. 2. Impulse control disorder, unspecified. PLAN: To continue with the treatment. LENGTH OF STAY: [address]: Jose TID: [id number]
--- NOTE | 2021-08-09 01:26 | PN ---
DATE: 08/08/2021 SUBJECTIVE: The patient was seen today, met with the staff, chart reviewed and also covering for Dr. Lopez. The patient continues to have problems with the negative thinking, having suicidal thoughts, but no specific plans. The patient also has some obsessive compulsive thinking. She is fixated about her medications, mostly lithium and she is also indecisive at times. The patient is afraid she may stop taking lithium after discharge and may become suicidal. OBSERVATION: VITAL SIGNS: Temperature 98.1, blood pressure 150/53, pulse 72, respirations 18, O2 sat 93%. Slept about 7 hours last night. The patient's appetite is fair. CURRENT MEDICATIONS: Include lithium carbonate 300 mg at night, trazodone 50 mg at night, Risperdal 0.5 mg 3 times a day. She is also on Sinemet. The patient is currently not exhibiting any psychotic symptoms. The patient has a tendency to obsess over things. Some intrusive thoughts. The patient admits to going through depression off and on over the years. LABORATORY DATA: The patient's lab reviewed. ASSESSMENT: 1. Bipolar disorder, mixed with psychotic features. 2. Impulse control disorder, unspecified. PLAN: To continue with the treatment. LENGTH OF STAY: 7 days. DEVAN/MACI DR: DEVAN/raquel TID: [id number]
--- NOTE | 2021-08-09 03:31 | PN ---
DATE: 08/08/2021 SUBJECTIVE: The patient was seen today, met with the staff. Chart was reviewed and also covering for Dr. Lopez. Staff reports increased crying, tearful, thoughts of self-harm. The patient exhibiting fluctuating behavior. The patient mainly obsessed with her medications mostly lithium. The patient currently denies suicidal. The patient also having problems with the cognition sometimes. The patient also lacking insight to her problems. OBSERVATION: VITAL SIGNS: Stable. The patient's sleep has improved. CURRENT MEDICATIONS: The patient's current medications include lithium carbonate 300 mg at night, trazodone 50 mg at night and Risperdal 0.5 mg t.i.d. She is also on Sinemet. LABORATORY DATA: The patient's lab reviewed. ASSESSMENT: 1. Bipolar disorder, mixed with psychotic features. 2. Impulse control disorder, unspecified. PLAN: To continue with the treatment. LENGTH OF STAY: [address]: Jose TID: [id number]
[2021-08-09 05:48] VITALS: BP 100/65
[2021-08-09] MEDS: PRASUGREL 10 MG TABLET. PO SCH (08:42)
[2021-08-09] MEDS: CARBIDOPA/LEVODOPA 25/100MG TABLET PO SCH ×4 (08:42→20:44)
[2021-08-09] MEDS: metFORMIN 500 MG TABLET PO SCH ×2 (08:42→17:23)
[2021-08-09] MEDS: PIOGLITAZONE 15 MG TABLET. PO SCH (08:42)
[2021-08-09] MEDS: risperiDONE 0.5 MG TABLET. PO SCH ×3 (08:42→20:44)
[2021-08-09] MEDS: NYSTATIN TOPICAL POWDER 15GM BOTTLE. TP SCH ×2 (08:47→20:44)
[2021-08-09] MEDS ORDERED: FLU VACC QUAD 21-22 (6MOS+) PF 0.5 ML SYRINGE. VAX IM ONE (09:00)
[2021-08-09 15:36] VITALS: BP 116/76
[2021-08-09] MEDS: LITHIUM CARBONATE 300 MG TABLET PO SCH (20:44)
[2021-08-09] MEDS: traZODone 50 MG TABLET. PO SCH (20:44)
--- NOTE | 2021-08-10 03:10 | PN ---
DATE: 08/09/2021 SUBJECTIVE: The patient was seen today, met with the staff, chart reviewed and also covering for Dr. Lopez. Staff reports increased anxiety, agitation at times and frequently talking about suicide and seems to have high level of anxiety with regard to other medications including lithium. The patient's lithium level is 0.4. OBSERVATION: VITAL SIGNS: Temperature 98, blood pressure 114/72, pulse 84, respirations 18 and O2 sat 94%. GENERAL: Slept about 6 hours last night. The patient's appetite is normal. CURRENT MEDICATIONS: Include lithium carbonate 300 mg at night, trazodone 50 mg at night, Risperdal 0.5 mg 3 times a day. The patient is also on Sinemet 25/100 one tablet 4 times daily. LABORATORY DATA: The patient's lab reviewed. The patient is not having any other physical complaint. ASSESSMENT: 1. Bipolar disorder, mixed with psychotic features. 2. Impulse control disorder, unspecified. PLAN: To continue with the treatment. LENGTH OF STAY: 7 days. MANUELA/FLORENCIA DR: Jose TID: [id number]
[2021-08-10 06:31] VITALS: BP 106/67
[2021-08-10] MEDS: metFORMIN 500 MG TABLET PO SCH ×2 (08:36→17:19)
[2021-08-10] MEDS: NYSTATIN TOPICAL POWDER 15GM BOTTLE. TP SCH ×2 (08:36→21:14)
[2021-08-10] MEDS: PIOGLITAZONE 15 MG TABLET. PO SCH (08:37)
[2021-08-10] MEDS: risperiDONE 0.5 MG TABLET. PO SCH ×3 (08:37→21:13)
[2021-08-10] MEDS: PRASUGREL 10 MG TABLET. PO SCH (08:37)
[2021-08-10] MEDS: CARBIDOPA/LEVODOPA 25/100MG TABLET PO SCH ×4 (08:37→21:13)
[2021-08-10] MEDS: ACETAMINOPHEN 325 MG TABLET PO PRN (13:40)
[2021-08-10 15:55] VITALS: BP 110/63
[2021-08-10 20:00] VITALS: BP 109/68
[2021-08-10] MEDS: LITHIUM CARBONATE 300 MG TABLET PO SCH (21:13)
[2021-08-10] MEDS: traZODone 50 MG TABLET. PO SCH (21:14)
--- NOTE | 2021-08-11 02:10 | PN ---
DATE: 08/10/2021 SUBJECTIVE: The patient was seen today, met with the staff, chart was reviewed and also covering for Dr. Lopez. Also participated in the treatment review meeting today. The patient apparently eating 100% of her meals. She constantly obsessed with her lithium. The patient has not verbalized any suicidal thoughts or plans. OBSERVATION: VITAL SIGNS: Temperature 97.7, blood pressure 110/63, pulse 89, respirations 18, O2 sat 92%. CURRENT MEDICATIONS: The patient's current medications include lithium carbonate 300 mg at night, trazodone 50 mg at night, Risperdal 0.5 mg 3 times a day. She is also on Sinemet 25/100 one tablet four times daily. LABORATORY DATA: The patient's lab reviewed. Her lithium level was 0.3. ASSESSMENT: 1. Bipolar disorder, mixed with psychotic features. 2. Impulse control disorder, unspecified. PLAN: We will consider increasing her lithium, also we will request for psych testing. Plan to continue with the treatment. LENGTH OF STAY: [address]: Jose TID: [id number]
[2021-08-11] MEDS: metFORMIN 500 MG TABLET PO SCH ×2 (08:13→17:30)
[2021-08-11] MEDS: PIOGLITAZONE 15 MG TABLET. PO SCH (08:13)
[2021-08-11] MEDS: PRASUGREL 10 MG TABLET. PO SCH (08:13)
[2021-08-11] MEDS: risperiDONE 0.5 MG TABLET. PO SCH ×3 (08:13→21:14)
[2021-08-11] MEDS: CARBIDOPA/LEVODOPA 25/100MG TABLET PO SCH ×4 (08:13→21:14)
[2021-08-11] MEDS: NYSTATIN TOPICAL POWDER 15GM BOTTLE. TP SCH ×2 (08:14→21:15)
[2021-08-11 10:46] VITALS: BP 109/68
[2021-08-11 11:12] LABS: BASO % 1 % (0-3); EOS # 0.2 x10^3/uL (0.0-0.7); EOS % 3 % (0-3); HEMATOCRIT 41.3 % (36.0-47.0); HEMOGLOBIN 13.5 g/dL (12.0-15.5); LYMPH # 1.3 x10^3/uL (1.0-4.8); LYMPH % 18 % (24-48); MEAN CORPUSCULAR HEMOGLOBIN 30 pg (25-35); MEAN CORPUSCULAR HGB CONC 33 g/dL (31-37); MEAN CORPUSCULAR VOLUME 91 fL (79-100); MONO # 0.5 x10^3/uL (0.0-1.1); MONO % 7 % (0-9); NEUT # 5.3 x10^3uL (1.8-7.7); NEUT % 72 % (31-73); PLATELET COUNT 158 x10^3/uL (140-400); RED BLOOD COUNT 4.56 x10^6/uL (3.50-5.40); RED CELL DISTRIBUTION WIDTH 14.4 % (11.5-14.5); WHITE BLOOD COUNT 7.3 x10^3/uL (4.0-11.0)
[2021-08-11 11:32] LABS: ALBUMIN 3.5 g/dL (3.4-5.0); CALCIUM 9.5 mg/dL (8.5-10.1); CREATININE 0.9 mg/dL (0.6-1.0); GFR 61.7; POTASSIUM 3.8 mmol/L (3.5-5.1); TOTAL BILIRUBIN 0.4 mg/dL (0.2-1.0)
[2021-08-11 16:11] VITALS: BP 125/79
[2021-08-11] MEDS: traZODone 50 MG TABLET. PO SCH (21:13)
[2021-08-11] MEDS: LITHIUM CARBONATE 300 MG TABLET PO SCH (21:14)
--- NOTE | 2021-08-12 05:34 | PN ---
DATE: 08/11/2021 SUBJECTIVE: The patient was seen today, met with the staff and chart reviewed. The staff reports no major behavior problems, no falls. She is pleasant, but confused and constantly wanting to go home. The patient's appetite normal. OBSERVATION: VITAL SIGNS: Temperature 98.2, blood pressure 109/68, pulse 85, respirations 18, O2 sat 95%, slept about 7 hours last night. CURRENT MEDICATIONS: Include lithium carbonate 300 mg at night, trazodone 50 mg at night, Risperdal 0.5 mg 3 times a day. She is also on Sinemet 25/100 one tablet four times a day. LABORATORY DATA: Reviewed. ASSESSMENT: 1. Bipolar disorder, mixed with psychotic features. 2. Impulse control disorder, unspecified. PLAN: To continue with treatment. LENGTH OF STAY: 7 days. DEVAN/MACI/ENDY DR: Jose TID: [id number]
[2021-08-12 06:30] VITALS: BP 106/57
[2021-08-12] MEDS: CARBIDOPA/LEVODOPA 25/100MG TABLET PO SCH ×4 (08:31→20:12)
[2021-08-12] MEDS: risperiDONE 0.5 MG TABLET. PO SCH ×3 (08:31→20:12)
[2021-08-12] MEDS: NYSTATIN TOPICAL POWDER 15GM BOTTLE. TP SCH ×2 (08:32→20:12)
[2021-08-12] MEDS: PRASUGREL 10 MG TABLET. PO SCH (08:32)
[2021-08-12] MEDS: metFORMIN 500 MG TABLET PO SCH ×2 (08:32→17:31)
[2021-08-12] MEDS: PIOGLITAZONE 15 MG TABLET. PO SCH (08:32)
[2021-08-12 08:33] LABS: BASO # 0.1 x10^3/uL (0.0-0.2); BASO % 1 % (0-3); EOS # 0.3 x10^3/uL (0.0-0.7); EOS % 4 % (0-3); HEMATOCRIT 42.4 % (36.0-47.0); LYMPH # 1.6 x10^3/uL (1.0-4.8); LYMPH % 21 % (24-48); MEAN CORPUSCULAR HEMOGLOBIN 30 pg (25-35); MEAN CORPUSCULAR HGB CONC 33 g/dL (31-37); MEAN CORPUSCULAR VOLUME 91 fL (79-100); MONO # 0.6 x10^3/uL (0.0-1.1); MONO % 8 % (0-9); NEUT % 67 % (31-73); PLATELET COUNT 164 x10^3/uL (140-400); RED BLOOD COUNT 4.67 x10^6/uL (3.50-5.40); RED CELL DISTRIBUTION WIDTH 14.3 % (11.5-14.5); WHITE BLOOD COUNT 7.5 x10^3/uL (4.0-11.0)
[2021-08-12] MEDS: ACETAMINOPHEN 325 MG TABLET PO PRN ×2 (08:34→20:24)
[2021-08-12 09:02] LABS: ALBUMIN 3.5 g/dL (3.4-5.0); CALCIUM 9.5 mg/dL (8.5-10.1); CREATININE 0.9 mg/dL (0.6-1.0); GFR 61.7; POTASSIUM 3.8 mmol/L (3.5-5.1); TOTAL BILIRUBIN 0.4 mg/dL (0.2-1.0); TOTAL PROTEIN 7.1 g/dL (6.4-8.2)
[2021-08-12 15:43] VITALS: BP 151/81
[2021-08-12] MEDS: traZODone 50 MG TABLET. PO SCH (20:12)
[2021-08-12] MEDS: LITHIUM CARBONATE 300 MG TABLET PO SCH (20:12)
--- NOTE | 2021-08-13 01:50 | PN ---
DATE: 08/12/2021 SUBJECTIVE: The patient was seen today, met with the staff, chart reviewed and also covering for Dr. Lopez. Staff reports some improvement. She is calmer, medication compliant, socially interactive with peers. No suicidal ideations at this time. OBSERVATION: VITAL SIGNS: Temperature 96.9, blood pressure 151/81, pulse 82, respirations 18, O2 sat 99%. The patient's sleep has improved. The patient is not presenting with any medical complaints at this time. CURRENT MEDICATIONS: Include lithium carbonate 300 mg at night, trazodone 50 mg at night, Risperdal 0.5 mg 3 times a day, Sinemet 25/100 mg 4 times daily. The patient is not having any side effects. LABORATORY DATA: The patient's lab reviewed. ASSESSMENT: 1. Bipolar disorder, mixed, with psychotic features. 2. Impulse control disorder, unspecified. PLAN: Continue with the current treatment plan. The patient's lithium was increased to 450 mg at night. We will check the lithium level again. LENGTH OF STAY: Five to seven days. MEGGAN DR: Jose TID: [id number]
[2021-08-13 06:06] VITALS: BP 132/76
[2021-08-13] MEDS: metFORMIN 500 MG TABLET PO SCH ×2 (08:37→17:21)
[2021-08-13] MEDS: PIOGLITAZONE 15 MG TABLET. PO SCH (08:38)
[2021-08-13] MEDS: PRASUGREL 10 MG TABLET. PO SCH (08:38)
[2021-08-13] MEDS: risperiDONE 0.5 MG TABLET. PO SCH ×3 (08:39→20:21)
[2021-08-13] MEDS: ACETAMINOPHEN 325 MG TABLET PO PRN ×2 (08:39→20:23)
[2021-08-13] MEDS: CARBIDOPA/LEVODOPA 25/100MG TABLET PO SCH ×4 (08:39→20:21)
[2021-08-13] MEDS: NYSTATIN TOPICAL POWDER 15GM BOTTLE. TP SCH ×2 (09:00→20:36)
[2021-08-13 15:38] VITALS: BP 129/81
[2021-08-13] MEDS: traZODone 50 MG TABLET. PO SCH (20:21)
[2021-08-13] MEDS: LITHIUM CARBONATE 300 MG TABLET PO SCH (20:22)
--- NOTE | 2021-08-14 00:02 | PN ---
DATE: 08/13/2021 SUBJECTIVE: The patient was seen today, met with the staff, chart reviewed. Staff reports no major behavior problems. She gets along with the staff and other residents. OBSERVATION: VITAL SIGNS: Temperature 97.5, blood pressure 132/76, pulse 65, respirations 16, O2 sat 94%. GENERAL: Slept about 7 hours last night. The patient's appetite improved. CURRENT MEDICATIONS: [place] carbonate 450 mg at night, trazodone 50 mg at night, Risperdal 0.5 mg 3 times a day, Sinemet 25 mg/100 mg 4 times daily. She is not having any side effects. ASSESSMENT: 1. Bipolar disorder, mixed with psychotic features. 2. Impulse control disorder, unspecified. PLAN: To continue with the treatment. LENGTH OF STAY: Five to seven days. DEVAN/ALEENA/LORRAINE DR: Jose TID: [id number]
[2021-08-14 05:56] VITALS: BP 107/70
[2021-08-14] MEDS: CARBIDOPA/LEVODOPA 25/100MG TABLET PO SCH ×4 (08:10→20:13)
[2021-08-14] MEDS: NYSTATIN TOPICAL POWDER 15GM BOTTLE. TP SCH ×2 (08:10→20:13)
[2021-08-14] MEDS: metFORMIN 500 MG TABLET PO SCH ×2 (08:10→17:34)
[2021-08-14] MEDS: PRASUGREL 10 MG TABLET. PO SCH (08:10)
[2021-08-14] MEDS: PIOGLITAZONE 15 MG TABLET. PO SCH (08:10)
[2021-08-14] MEDS: risperiDONE 0.5 MG TABLET. PO SCH ×3 (08:10→20:13)
[2021-08-14 16:19] VITALS: BP 143/82
[2021-08-14] MEDS: LITHIUM CARBONATE 300 MG TABLET PO SCH (20:14)
[2021-08-14] MEDS: traZODone 50 MG TABLET. PO SCH (20:14)
[2021-08-14] MEDS: ACETAMINOPHEN 325 MG TABLET PO PRN (20:15)
[2021-08-15 06:22] VITALS: BP 145/85
[2021-08-15] MEDS: PRASUGREL 10 MG TABLET. PO SCH (08:23)
[2021-08-15] MEDS: metFORMIN 500 MG TABLET PO SCH ×2 (08:23→17:36)
[2021-08-15] MEDS: CARBIDOPA/LEVODOPA 25/100MG TABLET PO SCH ×4 (08:23→21:05)
[2021-08-15] MEDS: PIOGLITAZONE 15 MG TABLET. PO SCH (08:23)
[2021-08-15] MEDS: risperiDONE 0.5 MG TABLET. PO SCH ×3 (08:23→21:05)
[2021-08-15] MEDS: NYSTATIN TOPICAL POWDER 15GM BOTTLE. TP SCH ×2 (13:24→21:05)
--- NOTE | 2021-08-15 15:27 | PN ---
DATE: 08/14/2021 SUBJECTIVE: The patient was seen today, met with the staff, chart reviewed. Staff reports no major behavioral problems. She is much calmer. She is med compliant. She is no longer having any depressive episodes. No negative thoughts. She is also interacting with staff and other residents. OBSERVATION: VITAL SIGNS: Temperature 97.5, blood pressure 107/70, pulse 81, respirations 16 and O2 sat 96%. GENERAL: Slept about 7 hours last night. The patient's appetite improved. CURRENT MEDICATIONS: The patient's current medications include lithium carbonate 450 mg at night, trazodone 50 mg at night, Risperdal 0.5 mg 3 times a day and Sinemet 25 mg/100 mg 4 times daily. The patient denies having any side effects to medications. LABORATORY DATA: The patient's lab reviewed. The patient's lithium on ____was 0.6. ASSESSMENT: 1. Bipolar disorder, mixed with psychotic features. 2. Impulse control disorder, unspecified. PLAN: To continue with the treatment. LENGTH OF STAY: 4 to 5 days. DEVAN/EMILY/SELINA DR: Jose TID: [id number] [facility] HEALTH NETWORKFederico
[2021-08-15 16:16] VITALS: BP 139/81
[2021-08-15] MEDS: traZODone 50 MG TABLET. PO SCH (21:05)
[2021-08-15] MEDS: LITHIUM CARBONATE 300 MG TABLET PO SCH (21:05)
[2021-08-15] MEDS: ACETAMINOPHEN 325 MG TABLET PO PRN (21:05)
--- NOTE | 2021-08-16 02:38 | PN ---
DATE: 08/15/2021 SUBJECTIVE: The patient was seen today, met with the staff, chart reviewed. Staff reports improvement with her behavior. She is no longer expressing any suicidal thoughts or plans, motivated for treatment. She is much calmer. Medication compliant and socially interactive with other residents. OBSERVATION: VITAL SIGNS: Temperature 97.8, blood pressure 145/85, pulse 85, respirations 16, O2 sat 94%. GENERAL: Slept about 7 hours last night. The patient's appetite improved. CURRENT MEDICATIONS: The patient's current medications include lithium carbonate 450 mg at night, trazodone 50 mg at night, Risperdal 0.5 mg 3 times a day and Sinemet 25 mg/100 four times daily. She denies of any side effects. LABORATORY DATA: The patient's lab reviewed. ASSESSMENT: 1. Bipolar disorder, mixed with psychotic features. 2. Impulse control disorder, unspecified. PLAN: To continue with treatment. LENGTH OF STAY: Three to four days. JULIANA DR: Jose TID: [id number]
[2021-08-16 06:38] VITALS: BP 114/63
[2021-08-16] MEDS: CARBIDOPA/LEVODOPA 25/100MG TABLET PO SCH ×4 (08:30→21:40)
[2021-08-16] MEDS: PRASUGREL 10 MG TABLET. PO SCH (08:30)
[2021-08-16] MEDS: metFORMIN 500 MG TABLET PO SCH ×2 (08:31→17:08)
[2021-08-16] MEDS: risperiDONE 0.5 MG TABLET. PO SCH ×3 (08:31→21:40)
[2021-08-16] MEDS: PIOGLITAZONE 15 MG TABLET. PO SCH (08:31)
[2021-08-16] MEDS: NYSTATIN TOPICAL POWDER 15GM BOTTLE. TP SCH ×2 (08:32→21:40)
[2021-08-16 15:40] VITALS: BP 156/83
[2021-08-16] MEDS: traZODone 50 MG TABLET. PO SCH (21:40)
[2021-08-16] MEDS: LITHIUM CARBONATE 300 MG TABLET PO SCH (21:40)
--- NOTE | 2021-08-17 01:25 | PN ---
DATE: 08/16/2021 SUBJECTIVE: The patient was seen today, met with the staff, chart reviewed. Staff reports that she continues to do well, not depressed, not expressing any suicidal thoughts, not obsessing over her medications including lithium. OBSERVATION: VITAL SIGNS: Temperature 98.0, blood pressure 114/63, pulse 79, respirations 18, O2 sat 97%. GENERAL: Slept about 6 hours last night. The patient's appetite improved. LABORATORY DATA: Reviewed. CURRENT MEDICATIONS: Include lithium carbonate 450 mg at night, trazodone 50 mg at night, Risperdal 0.5 mg 3 times a day and Sinemet 25 mg/100 four times daily. The patient denies of any side effects. ASSESSMENT: 1. Bipolar disorder, mixed with psychotic features. 2. Impulse control disorder, unspecified. PLAN: To continue with the treatment. LENGTH OF STAY: Three to four days. DEVAN/PALMIRA DR: Jose TID: [id number]
[2021-08-17 06:33] VITALS: BP 153/87
[2021-08-17] MEDS: risperiDONE 0.5 MG TABLET. PO SCH ×3 (08:28→21:09)
[2021-08-17] MEDS: metFORMIN 500 MG TABLET PO SCH ×2 (08:29→16:53)
[2021-08-17] MEDS: CARBIDOPA/LEVODOPA 25/100MG TABLET PO SCH ×4 (08:29→21:09)
[2021-08-17] MEDS: PIOGLITAZONE 15 MG TABLET. PO SCH (08:29)
[2021-08-17] MEDS: NYSTATIN TOPICAL POWDER 15GM BOTTLE. TP SCH ×2 (08:30→21:09)
[2021-08-17] MEDS: PRASUGREL 10 MG TABLET. PO SCH (10:16)
--- NOTE | 2021-08-17 13:37 | TX PLAN ---
Interdisciplinary Tx Plan Admission Information Aug 01, 2021 at 19:26 Legal Status (on Admission): Voluntary DPOA/Guardian Name: Pt is a self-sign Contact Other Contact Name: Reji Gillespie Other Contact Verified Code Status: Full Code Allergies: Coded Allergies: lidocaine (Verified Allergy, Severe, Anaphylaxis, 08/08/21) aspirin (Verified Allergy, Intermediate, Rash, 08/08/21) erythromycin base (Verified Allergy, Intermediate, Rash, 08/08/21) Diagnoses Primary Diagnosis: Bipolar, Depression Problem in Patient's Words: "I tried to kill myself a couple weeks ago. In the process I fell off the bed and they sent me to the hospital". Additional Admission Comments: According to the intake, pt is SI and has a plan to cut self with nails or push pins in the wall, grieving loss of friend and decreased self-care Problems Active Problems: labile mood SI thoughts Inactive Problems: medication compliant Pt Strengths/Limitations Ability for Cook: Fair Cognitive Functioning/Ability: Fair Communication Skills/Ability: Fair Financial Resources: Fair Insight/Judgement: Fair Intellectual Ability: Fair Physical Health: Fair Social Skills: Poor Stability in Family: Poor Stability in School/Work: Poor Verbal Skills: Good Discharge Criteria Discharge Criteria: Able meet basic life need, No need for close observ., Adequate arrangements @DC, Verbal commit aftercare, Improved behavior, Improved mood/thought Preliminary Discharge Plan Preliminary DC Plan: Other Special Precautions Fall Risk: Low Initial D/C Plan Potential to return to rehab once ready for discharge. Identified Discharge Needs: continued psychiatric follow-up consider nursing Currently Utilized Resources Currently Utilized Resources/P: Primary Care Physician Psychiatrist Counselor Identified Problems/Hx/Goals Objectives/Short-Term Goals Short Term Goals: Dec. Anxiety/Panic, Dec. Symp. Depression, No Suicidal/Bambi. ideation, Promote Coping Skill Short Term Goals in Patient's: Get my meds together and be more stable Interventions/Frequency Staff Interventions/Frequency&: Psychiatrist to assess pt at least 3x per week for medication management. Social Work to assess pt at least 2x per week to identify barriers to care and finalize discharge plans. Nursing to assess medication side effects, behavior modification and complete 15 minute checks daily. Encourage participation in group activities (if applicable) or1:1 engagement based off activity dept goals. History Vocational History: Pt worked at [employer] for 23 years. Education: Pt graduated the 12th grade, then attended school at [employer] in [place] for her BA. in [place] and Library Science. Pt then received two Masters in Psychology and Library Science. 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 Pt continues to be calm and cooperative with all staff direction. Pt is medication compliant and reports no SI for the last 5-6 days. Pt did reports having some concern about a male peer coming into her room and feeling unsafe, in which SW will plan to process with pt. Pt attends all groups with full participation and appears to be in good spirits. Pt will receive a repeat [place] level. SW had an extensive conversation with staff at [facility]. SW will also discuss this with the pt and prepare for discharge on Saturday. KAYLIN FREEMAN Aug 17, 2021 13:37
[2021-08-17 16:02] VITALS: BP 139/84
[2021-08-17] MEDS: traZODone 50 MG TABLET. PO SCH (21:09)
[2021-08-17] MEDS: LITHIUM CARBONATE 300 MG TABLET PO SCH (21:11)
--- NOTE | 2021-08-17 22:15 | PDOC ---
Exam Note: Efren Note: Please also refer to the separate dictated note~for this date of service dictated separately.~Patient seen individually. Discussed the patient with Nursing staff reviewed the chart.~Reviewed interim history and current functioning. Reviewed vital signs,~Labs/ Radiology~and current medications noted below. Continue current treatment with the changes noted in the dictated addendum note Assessment: Vital Signs/I&O: Vital Signs Date Time Temp Pulse Resp B/P (MAP) Pulse Ox O2 Delivery O2 Flow Rate FiO2 08/17/21 16:02 98.2 79 20 139/84 (102) 99 08/16/21 15:40 Room Air I & O 08/16/21 08/16/21 08/17/21 15:00 23:00 07:00 Intake Total 960 ml 520 ml 120 ml Balance 960 ml 520 ml 120 ml Labs: Laboratory Tests Test 08/17/21 07:18 Glucose (Fingerstick) 149 mg/dL (70-99) H Current Medications: Meds: Laboratory Tests Test 08/17/21 07:18 Glucose (Fingerstick) 149 mg/dL Current Medications Medications (Trade) Dose Ordered Sig/Brynn Route PRN Reason Start Time Stop Time Status Last Admin Dose Admin Carbidopa/Levodopa (Sinemet 25/100) 1 tab QID PO 08/01/21 21:00 08/17/21 21:09 Citalopram Hydrobromide (CeleXA) 20 mg DAILY PO 08/02/21 09:00 08/01/21 21:37 DC Metformin HCl (Glucophage) 500 mg BIDWMEALS PO 08/02/21 08:00 08/17/21 16:53 Polyethylene Glycol (miraLAX) 17 gm PRN DAILY PRN PO CONSTIPATION 08/01/21 19:45 Prasugrel (Effient) 10 mg DAILY PO 08/02/21 09:00 08/17/21 10:16 Risperidone (RisperDAL) 0.5 mg TID PO 08/01/21 21:00 08/17/21 21:09 Trazodone HCl (Desyrel) 50 mg HS PO 08/01/21 21:00 08/17/21 21:09 Acetaminophen (Tylenol) 650 mg PRN Q4HRS PRN PO PAIN 08/01/21 20:30 08/15/21 21:05 Pioglitazone HCl (Actos) 15 mg DAILY PO 08/02/21 09:00 08/17/21 08:29 Multi-Ingredient Ointment (Analgesic [place]) 1 devan PRN QID PRN TP MUSCLE PAIN 08/01/21 21:30 08/08/21 08:52 DC Al Hydroxide/Mg Hydroxide (Mylanta Plus Xs) 15 ml PRN AFTMEALHC PRN PO DYSPEPSIA 08/01/21 21:30 Nystatin (Nystop) 1 devan BID TP 08/02/21 21:00 08/17/21 21:09 [place] Carbonate 300 mg HS PO 08/02/21 21:00 08/10/21 20:31 DC 08/09/21 20:44 Influenza Virus Vaccine Quadrival (Flulaval Quad Syringe) 0.5 ml ONCE ONCE VAX IM 08/09/21 09:00 08/09/21 09:01 DC 08/09/21 08:45 [place] Carbonate 450 mg HS PO 08/10/21 21:00 08/17/21 21:11 I have reviewed the current psychotropics carefully including drug interactions. Risk benefit ratio favors no change other than as noted in my dictated progress note. Diagnosis: Problems: (1) Impulse control disorder, unspecified (2) Anxiety disorder, unspecified (3) Bipolar disorder, current episode mixed, severe, with psychotic features HERBER SCHMITZ MD Aug 17, 2021 22:15
[2021-08-18 06:19] VITALS: BP 147/86
[2021-08-18] MEDS: metFORMIN 500 MG TABLET PO SCH ×2 (08:16→17:09)
[2021-08-18] MEDS: risperiDONE 0.5 MG TABLET. PO SCH ×3 (08:16→20:36)
[2021-08-18] MEDS: PRASUGREL 10 MG TABLET. PO SCH (08:16)
[2021-08-18] MEDS: CARBIDOPA/LEVODOPA 25/100MG TABLET PO SCH ×4 (08:16→20:36)
[2021-08-18] MEDS: PIOGLITAZONE 15 MG TABLET. PO SCH (08:16)
[2021-08-18] MEDS: NYSTATIN TOPICAL POWDER 15GM BOTTLE. TP SCH ×2 (08:17→20:36)
[2021-08-18 16:03] VITALS: BP 165/86
[2021-08-18] MEDS: traZODone 50 MG TABLET. PO SCH (20:36)
[2021-08-18] MEDS: LITHIUM CARBONATE 300 MG TABLET PO SCH (20:36)
--- NOTE | 2021-08-18 22:05 | PDOC ---
Exam Note: Efren Note: Please also refer to the separate dictated note~for this date of service dictated separately.~Patient seen individually. Discussed the patient with Nursing staff reviewed the chart.~Reviewed interim history and current functioning. Reviewed vital signs,~Labs/ Radiology~and current medications noted below. Continue current treatment with the changes noted in the dictated addendum note Assessment: Vital Signs/I&O: Vital Signs Date Time Temp Pulse Resp B/P (MAP) Pulse Ox O2 Delivery O2 Flow Rate FiO2 08/18/21 16:03 97.9 77 18 165/86 (112) 100 08/16/21 15:40 Room Air I & O 08/17/21 08/17/21 08/18/21 15:00 23:00 07:00 Intake Total 960 ml 720 ml Balance 960 ml 720 ml Labs: Laboratory Tests Test 08/18/21 05:58 08/18/21 07:45 [place] Level 0.7 mmol/L (0.6-1.2) [place] Last Dose Date 08/17/21 [place] Last Dose Time 2100 Glucose (Fingerstick) 157 mg/dL (70-99) H Current Medications: Meds: Laboratory Tests Test 08/18/21 05:58 08/18/21 07:45 [place] Level 0.7 mmol/L [place] Last Dose Date 08/17/21 [place] Last Dose Time 2100 Glucose (Fingerstick) 157 mg/dL Current Medications Medications (Trade) Dose Ordered Sig/Brynn Route PRN Reason Start Time Stop Time Status Last Admin Dose Admin Carbidopa/Levodopa (Sinemet 25/100) 1 tab QID PO 08/01/21 21:00 08/18/21 20:36 Citalopram Hydrobromide (CeleXA) 20 mg DAILY PO 08/02/21 09:00 08/01/21 21:37 DC Metformin HCl (Glucophage) 500 mg BIDWMEALS PO 08/02/21 08:00 08/18/21 17:09 Polyethylene Glycol (miraLAX) 17 gm PRN DAILY PRN PO CONSTIPATION 08/01/21 19:45 Prasugrel (Effient) 10 mg DAILY PO 08/02/21 09:00 08/18/21 08:16 Risperidone (RisperDAL) 0.5 mg TID PO 08/01/21 21:00 08/18/21 20:36 Trazodone HCl (Desyrel) 50 mg HS PO 08/01/21 21:00 08/18/21 20:36 Acetaminophen (Tylenol) 650 mg PRN Q4HRS PRN PO PAIN 08/01/21 20:30 08/15/21 21:05 Pioglitazone HCl (Actos) 15 mg DAILY PO 08/02/21 09:00 08/18/21 08:16 Multi-Ingredient Ointment (Analgesic [place]) 1 devan PRN QID PRN TP MUSCLE PAIN 08/01/21 21:30 08/08/21 08:52 DC Al Hydroxide/Mg Hydroxide (Mylanta Plus Xs) 15 ml PRN AFTMEALHC PRN PO DYSPEPSIA 08/01/21 21:30 Nystatin (Nystop) 1 devan BID TP 08/02/21 21:00 08/18/21 20:36 [place] Carbonate 300 mg HS PO 08/02/21 21:00 08/10/21 20:31 DC 08/09/21 20:44 Influenza Virus Vaccine Quadrival (Flulaval Quad Syringe) 0.5 ml ONCE ONCE VAX IM 08/09/21 09:00 08/09/21 09:01 DC 08/09/21 08:45 [place] Carbonate 450 mg HS PO 08/10/21 21:00 08/18/21 20:36 I have reviewed the current psychotropics carefully including drug interactions. Risk benefit ratio favors no change other than as noted in my dictated progress note. Diagnosis: Problems: (1) Impulse control disorder, unspecified (2) Anxiety disorder, unspecified (3) Bipolar disorder, current episode mixed, severe, with psychotic features HERBER SCHMITZ MD Aug 18, 2021 22:05
[2021-08-19 06:00] VITALS: BP 158/90
[2021-08-19 07:01] LABS: BASO % 1 % (0-3); EOS # 0.3 x10^3/uL (0.0-0.7); EOS % 4 % (0-3); HEMATOCRIT 39.9 % (36.0-47.0); HEMOGLOBIN 13.3 g/dL (12.0-15.5); LYMPH # 1.6 x10^3/uL (1.0-4.8); LYMPH % 23 % (24-48); MEAN CORPUSCULAR HEMOGLOBIN 30 pg (25-35); MEAN CORPUSCULAR HGB CONC 33 g/dL (31-37); MEAN CORPUSCULAR VOLUME 90 fL (79-100); MONO # 0.6 x10^3/uL (0.0-1.1); MONO % 9 % (0-9); NEUT # 4.5 x10^3uL (1.8-7.7); NEUT % 64 % (31-73); PLATELET COUNT 173 x10^3/uL (140-400); RED BLOOD COUNT 4.43 x10^6/uL (3.50-5.40); RED CELL DISTRIBUTION WIDTH 13.9 % (11.5-14.5); WHITE BLOOD COUNT 7.1 x10^3/uL (4.0-11.0)
[2021-08-19 07:14] LABS: ALBUMIN 3.3 g/dL (3.4-5.0); ALBUMIN/GLOBULIN RATIO 1.1 (1.0-1.7); CALCIUM 9.2 mg/dL (8.5-10.1); CREATININE 0.9 mg/dL (0.6-1.0); GFR 61.7; POTASSIUM 3.9 mmol/L (3.5-5.1); TOTAL BILIRUBIN 0.5 mg/dL (0.2-1.0); TOTAL PROTEIN 6.3 g/dL (6.4-8.2)
[2021-08-19] MEDS: CARBIDOPA/LEVODOPA 25/100MG TABLET PO SCH ×4 (08:31→20:10)
[2021-08-19] MEDS: risperiDONE 0.5 MG TABLET. PO SCH ×3 (08:31→20:10)
[2021-08-19] MEDS: metFORMIN 500 MG TABLET PO SCH ×2 (08:31→17:06)
[2021-08-19] MEDS: PIOGLITAZONE 15 MG TABLET. PO SCH (08:31)
[2021-08-19] MEDS: NYSTATIN TOPICAL POWDER 15GM BOTTLE. TP SCH ×2 (08:32→20:09)
[2021-08-19] MEDS: PRASUGREL 10 MG TABLET. PO SCH (09:00)
[2021-08-19 15:46] VITALS: BP 129/71
[2021-08-19] MEDS: LITHIUM CARBONATE 300 MG TABLET PO SCH (20:09)
[2021-08-19] MEDS: traZODone 50 MG TABLET. PO SCH (20:10)
[2021-08-19] MEDS: ACETAMINOPHEN 325 MG TABLET PO PRN (20:54)
--- NOTE | 2021-08-19 22:06 | PDOC ---
Exam Note: Efren Note: Please also refer to the separate dictated note~for this date of service dictated separately.~Patient seen individually. Discussed the patient with Nursing staff reviewed the chart.~Reviewed interim history and current functioning. Reviewed vital signs,~Labs/ Radiology~and current medications noted below. Continue current treatment with the changes noted in the dictated addendum note Assessment: Vital Signs/I&O: Vital Signs Date Time Temp Pulse Resp B/P (MAP) Pulse Ox O2 Delivery O2 Flow Rate FiO2 08/19/21 15:46 97.0 85 20 129/71 (90) 99 Room Air I & O 08/18/21 08/18/21 08/19/21 15:00 23:00 07:00 Intake Total 960 ml 240 ml 240 ml Balance 960 ml 240 ml 240 ml Labs: Laboratory Tests Test 08/19/21 06:42 08/19/21 07:20 White Blood Count 7.1 x10^3/uL (4.0-11.0) Red Blood Count 4.43 x10^6/uL (3.50-5.40) Hemoglobin 13.3 g/dL (12.0-15.5) Hematocrit 39.9 % (36.0-47.0) Mean Corpuscular Volume 90 fL (79-100) Mean Corpuscular Hemoglobin 30 pg (25-35) Mean Corpuscular Hemoglobin Concent 33 g/dL (31-37) Red Cell Distribution Width 13.9 % (11.5-14.5) Platelet Count 173 x10^3/uL (140-400) Neutrophils (%) (Auto) 64 % (31-73) Lymphocytes (%) (Auto) 23 % (24-48) L Monocytes (%) (Auto) 9 % (0-9) Eosinophils (%) (Auto) 4 % (0-3) H Basophils (%) (Auto) 1 % (0-3) Neutrophils # (Auto) 4.5 x10^3uL (1.8-7.7) Lymphocytes # (Auto) 1.6 x10^3/uL (1.0-4.8) Monocytes # (Auto) 0.6 x10^3/uL (0.0-1.1) Eosinophils # (Auto) 0.3 x10^3/uL (0.0-0.7) Basophils # (Auto) 0.0 x10^3/uL (0.0-0.2) Sodium Level 139 mmol/L (136-145) Potassium Level 3.9 mmol/L (3.5-5.1) Chloride Level 103 mmol/L (98-107) Carbon Dioxide Level 30 mmol/L (21-32) Anion Gap 6 (6-14) Blood Urea Nitrogen 7 mg/dL (7-20) Creatinine 0.9 mg/dL (0.6-1.0) Estimated GFR (Cockcroft-Gault) 61.7 BUN/Creatinine Ratio 8 (6-20) Glucose Level 158 mg/dL (70-99) H Calcium Level 9.2 mg/dL (8.5-10.1) Total Bilirubin 0.5 mg/dL (0.2-1.0) Aspartate Amino Transferase (AST) 25 U/L (15-37) Alanine Aminotransferase (ALT) 27 U/L (14-59) Alkaline Phosphatase 81 U/L (46-116) Total Protein 6.3 g/dL (6.4-8.2) L Albumin 3.3 g/dL (3.4-5.0) L Albumin/Globulin Ratio 1.1 (1.0-1.7) Glucose (Fingerstick) 165 mg/dL (70-99) H Current Medications: Meds: Laboratory Tests Test 08/19/21 06:42 08/19/21 07:20 White Blood Count 7.1 x10^3/uL Red Blood Count 4.43 x10^6/uL Hemoglobin 13.3 g/dL Hematocrit 39.9 % Mean Corpuscular Volume 90 fL Mean Corpuscular Hemoglobin 30 pg Mean Corpuscular Hemoglobin Concent 33 g/dL Red Cell Distribution Width 13.9 % Platelet Count 173 x10^3/uL Neutrophils (%) (Auto) 64 % Lymphocytes (%) (Auto) 23 % Monocytes (%) (Auto) 9 % Eosinophils (%) (Auto) 4 % Basophils (%) (Auto) 1 % Neutrophils # (Auto) 4.5 x10^3uL Lymphocytes # (Auto) 1.6 x10^3/uL Monocytes # (Auto) 0.6 x10^3/uL Eosinophils # (Auto) 0.3 x10^3/uL Basophils # (Auto) 0.0 x10^3/uL Sodium Level 139 mmol/L Potassium Level 3.9 mmol/L Chloride Level 103 mmol/L Carbon Dioxide Level 30 mmol/L Anion Gap 6 Blood Urea Nitrogen 7 mg/dL Creatinine 0.9 mg/dL Estimated GFR (Cockcroft-Gault) 61.7 BUN/Creatinine Ratio 8 Glucose Level 158 mg/dL Calcium Level 9.2 mg/dL Total Bilirubin 0.5 mg/dL Aspartate Amino Transf (AST/SGOT) 25 U/L Alanine Aminotransferase (ALT/SGPT) 27 U/L Alkaline Phosphatase 81 U/L Total Protein 6.3 g/dL Albumin 3.3 g/dL Albumin/Globulin Ratio 1.1 Glucose (Fingerstick) 165 mg/dL Current Medications Medications (Trade) Dose Ordered Sig/Brynn Route PRN Reason Start Time Stop Time Status Last Admin Dose Admin Carbidopa/Levodopa (Sinemet 25/100) 1 tab QID PO 08/01/21 21:00 08/19/21 20:10 Citalopram Hydrobromide (CeleXA) 20 mg DAILY PO 08/02/21 09:00 08/01/21 21:37 DC Metformin HCl (Glucophage) 500 mg BIDWMEALS PO 08/02/21 08:00 08/19/21 17:06 Polyethylene Glycol (miraLAX) 17 gm PRN DAILY PRN PO CONSTIPATION 08/01/21 19:45 Prasugrel (Effient) 10 mg DAILY PO 08/02/21 09:00 08/19/21 09:00 Risperidone (RisperDAL) 0.5 mg TID PO 08/01/21 21:00 08/19/21 20:10 Trazodone HCl (Desyrel) 50 mg HS PO 08/01/21 21:00 08/19/21 20:10 Acetaminophen (Tylenol) 650 mg PRN Q4HRS PRN PO PAIN 08/01/21 20:30 08/19/21 20:54 Pioglitazone HCl (Actos) 15 mg DAILY PO 08/02/21 09:00 08/19/21 08:31 Multi-Ingredient Ointment (Analgesic [place]) 1 devan PRN QID PRN TP MUSCLE PAIN 08/01/21 21:30 08/08/21 08:52 DC Al Hydroxide/Mg Hydroxide (Mylanta Plus Xs) 15 ml PRN AFTMEALHC PRN PO DYSPEPSIA 08/01/21 21:30 Nystatin (Nystop) 1 devan BID TP 08/02/21 21:00 08/19/21 20:09 [place] Carbonate 300 mg HS PO 08/02/21 21:00 08/10/21 20:31 DC 08/09/21 20:44 Influenza Virus Vaccine Quadrival (Flulaval Quad Syringe) 0.5 ml ONCE ONCE VAX IM 08/09/21 09:00 08/09/21 09:01 DC 08/09/21 08:45 [place] Carbonate 450 mg HS PO 08/10/21 21:00 08/19/21 20:09 I have reviewed the current psychotropics carefully including drug interactions. Risk benefit ratio favors no change other than as noted in my dictated progress note. Diagnosis: Problems: (1) Impulse control disorder, unspecified (2) Anxiety disorder, unspecified (3) Bipolar disorder, current episode mixed, severe, with psychotic features HERBER SCHMITZ MD Aug 19, 2021 22:06
[2021-08-20 06:20] VITALS: BP 134/74
[2021-08-20] MEDS: NYSTATIN TOPICAL POWDER 15GM BOTTLE. TP SCH ×2 (08:22→19:46)
[2021-08-20] MEDS: CARBIDOPA/LEVODOPA 25/100MG TABLET PO SCH ×4 (08:22→19:47)
[2021-08-20] MEDS: risperiDONE 0.5 MG TABLET. PO SCH ×3 (08:22→19:47)
[2021-08-20] MEDS: PRASUGREL 10 MG TABLET. PO SCH (08:22)
[2021-08-20] MEDS: metFORMIN 500 MG TABLET PO SCH ×2 (08:22→17:22)
[2021-08-20] MEDS: PIOGLITAZONE 15 MG TABLET. PO SCH (08:22)
--- NOTE | 2021-08-20 09:06 | PDOC ---
Exam Note: Efren Note: This note is a late entry for 08/17/2021 covers elements not covered in my initial note. Subjective: This is my first visit with the patient since 08/05/[address] Brice covered for me during my vacation. Reviewed information with Dr. Brice, reviewed current and past records, reviewed interim history and circumstances prompting this referral for inpatient psychiatric stabilization. The patient was reviewed at treatment team meeting individually in the morning on 08/17/2021 with Maggie Du, Jennifer Pearson (manager social), Paty, activity therapy and Jose Angel SALCEDO, discussed and reviewed the chart. The patient slept 5-1/4 hours previous night. We had lengthy discussion about the patient being on lithium and that the facility will keep her lithium dispense daily and in the meantime the facility cleans her apartment. She lives in an independent living. She denies active suicidal ideation. She has been attendi [facility] groups. She is independent, pleasant, and social. We will repeat lithium level in the morning and will arrange outpatient psychiatry with her outpatient psychiatrist. Review of Systems: Impaired ambulation in wheelchair. No CV, , pulmonary, eye system symptoms on review. Mental Status Exam: The patient is reasonably oriented. I met with her in the evening in her room at length. Speech coherent less pressured. Abstraction fair. Computation reasonable. Language function intact. Attention span somewhat short. Mood and affect somewhat improved. Laboratory Data: Reviewed. Impression: Bipolar 1 disorder mixed with psychotic features in partial remission. Anxiety disorder unspecified. Impulse control disorder unspecified. Plan: Continue Risperdal, lithium, trazodone at current dosage. She also remains on Sinemet for her Parkinsons. Check lithium level in the morning. Adjust as clinically indicated. Assessment: Vital Signs/I&O: Vital Signs Date Time Temp Pulse Resp B/P (MAP) Pulse Ox O2 Delivery O2 Flow Rate FiO2 08/20/21 06:20 96.8 77 20 134/74 (94) 95 08/19/21 15:46 Room Air I & O 08/19/21 08/19/21 08/20/21 14:59 22:59 06:59 Intake Total 960 ml 1140 ml Balance 960 ml 1140 ml Labs: Laboratory Tests Test 08/20/21 07:27 Glucose (Fingerstick) 154 mg/dL (70-99) H Current Medications: Meds: Laboratory Tests Test 08/20/21 07:27 Glucose (Fingerstick) 154 mg/dL Current Medications Medications (Trade) Dose Ordered Sig/Brynn Route PRN Reason Start Time Stop Time Status Last Admin Dose Admin Carbidopa/Levodopa (Sinemet 25/100) 1 tab QID PO 08/01/21 21:00 08/20/21 08:22 Citalopram Hydrobromide (CeleXA) 20 mg DAILY PO 08/02/21 09:00 08/01/21 21:37 DC Metformin HCl (Glucophage) 500 mg BIDWMEALS PO 08/02/21 08:00 08/20/21 08:22 Polyethylene Glycol (miraLAX) 17 gm PRN DAILY PRN PO CONSTIPATION 08/01/21 19:45 Prasugrel (Effient) 10 mg DAILY PO 08/02/21 09:00 08/20/21 08:22 Risperidone (RisperDAL) 0.5 mg TID PO 08/01/21 21:00 08/20/21 08:22 Trazodone HCl (Desyrel) 50 mg HS PO 08/01/21 21:00 08/19/21 20:10 Acetaminophen (Tylenol) 650 mg PRN Q4HRS PRN PO PAIN 08/01/21 20:30 08/19/21 20:54 Pioglitazone HCl (Actos) 15 mg DAILY PO 08/02/21 09:00 08/20/21 08:22 Multi-Ingredient Ointment (Analgesic [place]) 1 devan PRN QID PRN TP MUSCLE PAIN 08/01/21 21:30 08/08/21 08:52 DC Al Hydroxide/Mg Hydroxide (Mylanta Plus Xs) 15 ml PRN AFTMEALHC PRN PO DYSPEPSIA 08/01/21 21:30 Nystatin (Nystop) 1 devan BID TP 08/02/21 21:00 08/20/21 08:22 [place] Carbonate 300 mg HS PO 08/02/21 21:00 08/10/21 20:31 DC 08/09/21 20:44 Influenza Virus Vaccine Quadrival (Flulaval Quad [id number] Syringe) 0.5 ml ONCE ONCE VAX IM 08/09/21 09:00 08/09/21 09:01 DC 08/09/21 08:45 [place] Carbonate 450 mg HS PO 08/10/21 21:00 08/19/21 20:09 I have reviewed the current psychotropics carefully including drug interactions. Risk benefit ratio favors no change other than as noted in my dictated progress note. Diagnosis: Problems: (1) Bipolar 1 disorder, depressed, partial remission (2) Impulse control disorder, unspecified (3) Anxiety disorder, unspecified (4) Bipolar disorder, current episode mixed, severe, with psychotic features HERBER SCHMITZ MD Aug 20, 2021 09:06
--- NOTE | 2021-08-20 09:31 | PDOC ---
Exam Note: Efren Note: This note is a late entry for 08/18/2021 covers elements not covered in my initial note. Subjective: The patient was seen individually in the evening of 08/18/2021 with Melissa SALCEDO, discussed and reviewed the chart. The patient slept 7-1/4 hours previous night. She has been doing reasonably well. She is alert and oriented. No suicidal ideation. [place] level is 0.7. Review of Systems: Impaired ambulation in wheelchair. No CV, , pulmonary, eye system symptoms on review. Mental Status Exam: The patient is reasonably oriented. I met with her in her room. Speech coherent. Abstraction fair. Computation impaired. Language function intact. Attention span fair. Mood and affect improved. Laboratory Data: Reviewed. Impression: Bipolar 1 disorder mixed with psychotic features in partial remission. Anxiety disorder unspecified. Impulse control disorder unspecified. Plan: Continue psychotropics unchanged. Assessment: Vital Signs/I&O: Vital Signs Date Time Temp Pulse Resp B/P (MAP) Pulse Ox O2 Delivery O2 Flow Rate FiO2 08/20/21 06:20 96.8 77 20 134/74 (94) 95 08/19/21 15:46 Room Air I & O0 08/19/21 08/19/21 08/20/21 14:59 22:59 06:59 Intake Total 960 ml 1140 ml Balance 960 ml 1140 ml Labs: Laboratory Tests Test 08/20/21 07:27 Glucose (Fingerstick) 154 mg/dL (70-99) H Current Medications: Meds: Laboratory Tests Test 08/20/21 07:27 Glucose (Fingerstick) 154 mg/dL Current Medications Medications (Trade) Dose Ordered Sig/Brynn Route PRN Reason Start Time Stop Time Status Last Admin Dose Admin Carbidopa/Levodopa (Sinemet 25/100) 1 tab QID PO 08/01/21 21:00 08/20/21 08:22 Citalopram Hydrobromide (CeleXA) 20 mg DAILY PO 08/02/21 09:00 08/01/21 21:37 DC Metformin HCl (Glucophage) 500 mg BIDWMEALS PO 08/02/21 08:00 08/20/21 08:22 Polyethylene Glycol (miraLAX) 17 gm PRN DAILY PRN PO CONSTIPATION 08/01/21 19:45 Prasugrel (Effient) 10 mg DAILY PO 08/02/21 09:00 08/20/21 08:22 Risperidone (RisperDAL) 0.5 mg TID PO 08/01/21 21:00 08/20/21 08:22 Trazodone HCl (Desyrel) 50 mg HS PO 08/01/21 21:00 08/19/21 20:10 Acetaminophen (Tylenol) 650 mg PRN Q4HRS PRN PO PAIN 08/01/21 20:30 08/19/21 20:54 Pioglitazone HCl (Actos) 15 mg DAILY PO 08/02/21 09:00 08/20/21 08:22 Multi-Ingredient Ointment (Analgesic [place]) 1 devan PRN QID PRN TP MUSCLE PAIN 08/01/21 21:30 08/08/21 08:52 DC Al Hydroxide/Mg Hydroxide (Mylanta Plus Xs) 15 ml PRN AFTMEALHC PRN PO DYSPEPSIA 08/01/21 21:30 Nystatin (Nystop) 1 devan BID TP 08/02/21 21:00 08/20/21 08:22 [place] Carbonate 300 mg HS PO 08/02/21 21:00 08/10/21 20:31 DC 08/09/21 20:44 Influenza Virus Vaccine Quadrival (Flulaval Quad [id number] Syringe) 0.5 ml ONCE ONCE VAX IM 08/09/21 09:00 08/09/21 09:01 DC 08/09/21 08:45 [place] Carbonate 450 mg HS PO 08/10/21 21:00 08/19/21 20:09 I have reviewed the current psychotropics carefully including drug interactions. Risk benefit ratio favors no change other than as noted in my dictated progress note. Diagnosis: Problems: (1) Impulse control disorder, unspecified (2) Anxiety disorder, unspecified (3) Bipolar disorder, current episode mixed, severe, with psychotic features (4) Bipolar 1 disorder, depressed, partial remission HERBER SCHMITZ MD Aug 20, 2021 09:31
[2021-08-20 16:10] VITALS: BP 120/85
[2021-08-20] MEDS: traZODone 50 MG TABLET. PO SCH (19:46)
[2021-08-20] MEDS: LITHIUM CARBONATE 300 MG TABLET PO SCH (19:47)
--- NOTE | 2021-08-20 21:55 | PDOC ---
Exam Note: Efren Note: Please also refer to the separate dictated note~for this date of service dictated separately.~Patient seen individually. Discussed the patient with Nursing staff reviewed the chart.~Reviewed interim history and current functioning. Reviewed vital signs,~Labs/ Radiology~and current medications noted below. Continue current treatment with the changes noted in the dictated addendum note Assessment: Vital Signs/I&O: Vital Signs Date Time Temp Pulse Resp B/P (MAP) Pulse Ox O2 Delivery O2 Flow Rate FiO2 08/20/21 16:10 98.0 79 18 120/85 (97) 98 08/19/21 15:46 Room Air I & O 08/19/21 08/19/21 08/20/21 15:00 23:00 07:00 Intake Total 960 ml 1140 ml Balance 960 ml 1140 ml Labs: Laboratory Tests Test 08/20/21 07:27 Glucose (Fingerstick) 154 mg/dL (70-99) H Current Medications: Meds: Laboratory Tests Test 08/20/21 07:27 Glucose (Fingerstick) 154 mg/dL Current Medications Medications (Trade) Dose Ordered Sig/Brynn Route PRN Reason Start Time Stop Time Status Last Admin Dose Admin Carbidopa/Levodopa (Sinemet 25/100) 1 tab QID PO 08/01/21 21:00 08/20/21 19:47 Citalopram Hydrobromide (CeleXA) 20 mg DAILY PO 08/02/21 09:00 08/01/21 21:37 DC Metformin HCl (Glucophage) 500 mg BIDWMEALS PO 08/02/21 08:00 08/20/21 17:22 Polyethylene Glycol (miraLAX) 17 gm PRN DAILY PRN PO CONSTIPATION 08/01/21 19:45 Prasugrel (Effient) 10 mg DAILY PO 08/02/21 09:00 08/20/21 08:22 Risperidone (RisperDAL) 0.5 mg TID PO 08/01/21 21:00 08/20/21 19:47 Trazodone HCl (Desyrel) 50 mg HS PO 08/01/21 21:00 08/20/21 19:46 Acetaminophen (Tylenol) 650 mg PRN Q4HRS PRN PO PAIN 08/01/21 20:30 08/19/21 20:54 Pioglitazone HCl (Actos) 15 mg DAILY PO 08/02/21 09:00 08/20/21 08:22 Multi-Ingredient Ointment (Analgesic [place]) 1 devan PRN QID PRN TP MUSCLE PAIN 08/01/21 21:30 08/08/21 08:52 DC Al Hydroxide/Mg Hydroxide (Mylanta Plus Xs) 15 ml PRN AFTMEALHC PRN PO DYSPEPSIA 08/01/21 21:30 Nystatin (Nystop) 1 devan BID TP 08/02/21 21:00 08/20/21 19:46 [place] Carbonate 300 mg HS PO 08/02/21 21:00 08/10/21 20:31 DC 08/09/21 20:44 Influenza Virus Vaccine Quadrival (Flulaval Quad Syringe) 0.5 ml ONCE ONCE VAX IM 08/09/21 09:00 08/09/21 09:01 DC 08/09/21 08:45 [place] Carbonate 450 mg HS PO 08/10/21 21:00 08/20/21 19:47 I have reviewed the current psychotropics carefully including drug interactions. Risk benefit ratio favors no change other than as noted in my dictated progress note. Diagnosis: Problems: (1) Impulse control disorder, unspecified (2) Anxiety disorder, unspecified (3) Bipolar disorder, current episode mixed, severe, with psychotic features (4) Bipolar 1 disorder, depressed, partial remission HERBER SCHMITZ MD Aug 20, 2021 21:55
[2021-08-21 05:32] VITALS: BP 151/85
[2021-08-21] MEDS: CARBIDOPA/LEVODOPA 25/100MG TABLET PO SCH ×4 (08:06→21:08)
[2021-08-21] MEDS: metFORMIN 500 MG TABLET PO SCH ×2 (08:06→17:23)
[2021-08-21] MEDS: risperiDONE 0.5 MG TABLET. PO SCH ×3 (08:07→21:07)
[2021-08-21] MEDS: PIOGLITAZONE 15 MG TABLET. PO SCH (08:07)
[2021-08-21] MEDS: PRASUGREL 10 MG TABLET. PO SCH (08:07)
[2021-08-21] MEDS: NYSTATIN TOPICAL POWDER 15GM BOTTLE. TP SCH ×2 (08:51→21:08)
--- NOTE | 2021-08-21 09:11 | PDOC ---
Exam Note: Efren Note: This note is a late entry for 08/19/2021 covers elements not covered in my initial note. Subjective: The patient was seen individually in the evening of 08/19/2021 with Robert SALCEDO, discussed and reviewed the chart. The patient slept 6-1/2 hours previous night. Overall she is doing better. I had a very lengthy discussion about the patients diagnoses, treatment on lithium, risk-benefit ratio and the fact that the facility will be keeping her lithium and she is agreeable to this. Review of Systems: Impaired ambulation in wheelchair. No CV, , pulmonary, eye system symptoms on review. Mental Status Exam: The patient is reasonably oriented. Speech coherent. Abstraction fair. Computation impaired. Language function intact. Mood and affect is stable, euthymic. No suicidal or homicidal ideation. Laboratory Data: Reviewed. Impression: Bipolar 1 disorder mixed with psychotic features in partial remission. Anxiety disorder unspecified. Impulse control disorder unspecified. Plan: Continue current psychotropics unchanged. [place] level is therapeutic. Adjust further as clinically indicated. Transition to a lower level of care early next week. Assessment: Vital Signs/I&O: Vital Signs Date Time Temp Pulse Resp B/P (MAP) Pulse Ox O2 Delivery O2 Flow Rate FiO2 08/21/21 05:32 97.6 79 18 151/85 (107) 91 08/19/21 15:46 Room Air I & O 08/20/21 08/20/21 08/21/21 15:00 23:00 07:00 Intake Total 600 ml 780 ml Balance 600 ml 780 ml Current Medications: Meds: Current Medications Medications (Trade) Dose Ordered Sig/Brynn Route PRN Reason Start Time Stop Time Status Last Admin Dose Admin Carbidopa/Levodopa (Sinemet 25/100) 1 tab QID PO 08/01/21 21:00 08/21/21 08:06 Citalopram Hydrobromide (CeleXA) 20 mg DAILY PO 08/02/21 09:00 08/01/21 21:37 DC Metformin HCl (Glucophage) 500 mg BIDWMEALS PO 08/02/21 08:00 08/21/21 08:06 Polyethylene Glycol (miraLAX) 17 gm PRN DAILY PRN PO CONSTIPATION 08/01/21 19:45 Prasugrel (Effient) 10 mg DAILY PO 08/02/21 09:00 08/21/21 08:07 Risperidone (RisperDAL) 0.5 mg TID PO 08/01/21 21:00 08/21/21 08:07 Trazodone HCl (Desyrel) 50 mg HS PO 08/01/21 21:00 08/20/21 19:46 Acetaminophen (Tylenol) 650 mg PRN Q4HRS PRN PO PAIN 08/01/21 20:30 08/19/21 20:54 Pioglitazone HCl (Actos) 15 mg DAILY PO 08/02/21 09:00 08/21/21 08:07 Multi-Ingredient Ointment (Analgesic [place]) 1 devan PRN QID PRN TP MUSCLE PAIN 08/01/21 21:30 08/08/21 08:52 DC Al Hydroxide/Mg Hydroxide (Mylanta Plus Xs) 15 ml PRN AFTMEALHC PRN PO DYSPEPSIA 08/01/21 21:30 Nystatin (Nystop) 1 devan BID TP 08/02/21 21:00 08/21/21 08:51 [place] Carbonate 300 mg HS PO 08/02/21 21:00 08/10/21 20:31 DC 08/09/21 20:44 Influenza Virus Vaccine Quadrival (Flulaval Quad [id number] Syringe) 0.5 ml ONCE ONCE VAX IM 08/09/21 09:00 08/09/21 09:01 DC 08/09/21 08:45 [place] Carbonate 450 mg HS PO 08/10/21 21:00 08/20/21 19:47 I have reviewed the current psychotropics carefully including drug interactions. Risk benefit ratio favors no change other than as noted in my dictated progress note. Diagnosis: Problems: (1) Impulse control disorder, unspecified (2) Anxiety disorder, unspecified (3) Bipolar 1 disorder, depressed, partial remission HERBER SCHMITZ MD Aug 21, 2021 09:11
[2021-08-21 15:40] VITALS: BP 138/82
[2021-08-21] MEDS: ACETAMINOPHEN 325 MG TABLET PO PRN (17:23)
[2021-08-21] MEDS: traZODone 50 MG TABLET. PO SCH (21:08)
[2021-08-21] MEDS: LITHIUM CARBONATE 300 MG TABLET PO SCH (21:08)
--- NOTE | 2021-08-21 21:50 | PDOC ---
Exam Note: Efren Note: Please also refer to the separate dictated note~for this date of service dictated separately.~Patient seen individually. Discussed the patient with Nursing staff reviewed the chart.~Reviewed interim history and current functioning. Reviewed vital signs,~Labs/ Radiology~and current medications noted below. Continue current treatment with the changes noted in the dictated addendum note Assessment: Vital Signs/I&O: Vital Signs Date Time Temp Pulse Resp B/P (MAP) Pulse Ox O2 Delivery O2 Flow Rate FiO2 08/21/21 15:40 97.9 73 16 138/82 (100) 98 Room Air I & O 08/20/21 08/20/21 08/21/21 15:00 23:00 07:00 Intake Total 600 ml 780 ml Balance 600 ml 780 ml Current Medications: Meds: Current Medications Medications (Trade) Dose Ordered Sig/Brynn Route PRN Reason Start Time Stop Time Status Last Admin Dose Admin Carbidopa/Levodopa (Sinemet 25/100) 1 tab QID PO 08/01/21 21:00 08/21/21 21:08 Citalopram Hydrobromide (CeleXA) 20 mg DAILY PO 08/02/21 09:00 08/01/21 21:37 DC Metformin HCl (Glucophage) 500 mg BIDWMEALS PO 08/02/21 08:00 08/21/21 17:23 Polyethylene Glycol (miraLAX) 17 gm PRN DAILY PRN PO CONSTIPATION 08/01/21 19:45 Prasugrel (Effient) 10 mg DAILY PO 08/02/21 09:00 08/21/21 08:07 Risperidone (RisperDAL) 0.5 mg TID PO 08/01/21 21:00 08/21/21 21:07 Trazodone HCl (Desyrel) 50 mg HS PO 08/01/21 21:00 08/21/21 21:08 Acetaminophen (Tylenol) 650 mg PRN Q4HRS PRN PO PAIN 08/01/21 20:30 08/21/21 17:23 Pioglitazone HCl (Actos) 15 mg DAILY PO 08/02/21 09:00 08/21/21 08:07 Multi-Ingredient Ointment (Analgesic [place]) 1 devan PRN QID PRN TP MUSCLE PAIN 08/01/21 21:30 08/08/21 08:52 DC Al Hydroxide/Mg Hydroxide (Mylanta Plus Xs) 15 ml PRN AFTMEALHC PRN PO DYSPEPSIA 08/01/21 21:30 Nystatin (Nystop) 1 devan BID TP 08/02/21 21:00 08/21/21 21:08 [place] Carbonate 300 mg HS PO 08/02/21 21:00 08/10/21 20:31 DC 08/09/21 20:44 Influenza Virus Vaccine Quadrival (Flulaval Quad Syringe) 0.5 ml ONCE ONCE VAX IM 08/09/21 09:00 08/09/21 09:01 DC 08/09/21 08:45 [place] Carbonate 450 mg HS PO 08/10/21 21:00 08/21/21 21:08 I have reviewed the current psychotropics carefully including drug interactions. Risk benefit ratio favors no change other than as noted in my dictated progress note. Diagnosis: Problems: (1) Impulse control disorder, unspecified (2) Anxiety disorder, unspecified (3) Bipolar 1 disorder, depressed, partial remission HERBER SCHMITZ MD Aug 21, 2021 21:50
[2021-08-22] MEDS ORDERED: LITH450T16 PO (01:13)
[2021-08-22] MEDS ORDERED: MAG-124 PO (01:14)
[2021-08-22] MEDS ORDERED: NYST15PO9 TP (01:14)
[2021-08-22 06:27] VITALS: BP 154/89
[2021-08-22] MEDS: PIOGLITAZONE 15 MG TABLET. PO SCH (08:20)
[2021-08-22] MEDS: PRASUGREL 10 MG TABLET. PO SCH (08:20)
[2021-08-22] MEDS: risperiDONE 0.5 MG TABLET. PO SCH ×3 (08:20→20:20)
[2021-08-22] MEDS: NYSTATIN TOPICAL POWDER 15GM BOTTLE. TP SCH ×2 (08:20→20:20)
[2021-08-22] MEDS: CARBIDOPA/LEVODOPA 25/100MG TABLET PO SCH ×4 (08:20→20:20)
[2021-08-22] MEDS: metFORMIN 500 MG TABLET PO SCH ×2 (08:20→17:26)
--- NOTE | 2021-08-22 09:35 | PDOC ---
Exam Note: Efren Note: This note is a late entry for 08/20/2021 covers elements not covered in my initial note. Subjective: The patient was seen individually in the evening of 08/20/2021 with Robert SALCEDO, discussed and reviewed the chart. The patient slept 6-3/4 hours previous night. Overall she is quite appropriate on the unit, pleasant, cooperative. No suicidal ideation. Manic symptoms appear much improved. She is tolerating the lithium level is 0.7. We will repeat on 08/22 prior to her discharge. Review of Systems: Impaired ambulation in wheelchair. No CV, , pulmonary, ey e system symptoms on review. Mental Status Exam: The patient is reasonably oriented. Speech coherent. Abstraction fair. Computation impaired. Language function intact. Mood and affect is stable. No suicidal or homicidal ideation. Laboratory Data: Reviewed. Impression: Bipolar 1 disorder mixed with psychotic features in partial remission. Anxiety disorder unspecified. Impulse control disorder unspecified. Plan: Continue current psychotropics unchanged. We have a lengthy discussion about outpatient follow up including labs and frequency of lithium levels and the fact that the staff at the facility will keep her lithium and she is agreeable to all of this. Assessment: Vital Signs/I&O: Vital Signs Date Time Temp Pulse Resp B/P (MAP) Pulse Ox O2 Delivery O2 Flow Rate FiO2 08/22/21 06:27 97.6 80 20 154/89 (110) 93 08/21/21 15:40 Room Air I & O 08/21/21 08/21/21 08/22/21 15:00 23:00 07:00 Intake Total 1020 ml 840 ml Balance 1020 ml 840 ml Labs: Laboratory Tests Test 08/22/21 07:38 Glucose (Fingerstick) 134 mg/dL (70-99) H Current Medications: Meds: Laboratory Tests Test 08/22/21 07:38 Glucose (Fingerstick) 134 mg/dL Current Medications Medications (Trade) Dose Ordered Sig/Brynn Route PRN Reason Start Time Stop Time Status Last Admin Dose Admin Carbidopa/Levodopa (Sinemet 25/100) 1 tab QID PO 08/01/21 21:00 08/22/21 08:20 Citalopram Hydrobromide (CeleXA) 20 mg DAILY PO 08/02/21 09:00 08/01/21 21:37 DC Metformin HCl (Glucophage) 500 mg BIDWMEALS PO 08/02/21 08:00 08/22/21 08:20 Polyethylene Glycol (miraLAX) 17 gm PRN DAILY PRN PO CONSTIPATION 08/01/21 19:45 Prasugrel (Effient) 10 mg DAILY PO 08/02/21 09:00 08/22/21 08:20 Risperidone (RisperDAL) 0.5 mg TID PO 08/01/21 21:00 08/22/21 08:20 Trazodone HCl (Desyrel) 50 mg HS PO 08/01/21 21:00 08/21/21 21:08 Acetaminophen (Tylenol) 650 mg PRN Q4HRS PRN PO PAIN 08/01/21 20:30 08/21/21 17:23 Pioglitazone HCl (Actos) 15 mg DAILY PO 08/02/21 09:00 08/22/21 08:20 Multi-Ingredient Ointment (Analgesic [place]) 1 devan PRN QID PRN TP MUSCLE PAIN 08/01/21 21:30 08/08/21 08:52 DC Al Hydroxide/Mg Hydroxide (Mylanta Plus Xs) 15 ml PRN AFTMEALHC PRN PO DYSPEPSIA 08/01/21 21:30 Nystatin (Nystop) 1 devan BID TP 08/02/21 21:00 08/22/21 08:20 [place] Carbonate 300 mg HS PO 08/02/21 21:00 08/10/21 20:31 DC 08/09/21 20:44 Influenza Virus Vaccine Quadrival (Flulaval Quad [id number] Syringe) 0.5 ml ONCE ONCE VAX IM 08/09/21 09:00 08/09/21 09:01 DC 08/09/21 08:45 [place] Carbonate 450 mg HS PO 08/10/21 21:00 08/21/21 21:08 I have reviewed the current psychotropics carefully including drug interactions. Risk benefit ratio favors no change other than as noted in my dictated progress note. Diagnosis: Problems: (1) Impulse control disorder, unspecified (2) Anxiety disorder, unspecified (3) Bipolar disorder, current episode mixed, severe, with psychotic features (4) Bipolar 1 disorder, depressed, partial remission HERBER SCHMITZ MD Aug 22, 2021 09:35
--- NOTE | 2021-08-22 09:58 | PDOC ---
Exam Note: Efren Note: This note is a late entry for 08/21/2021 covers elements not covered in my initial note. Subjective: The patient was seen individually in the evening of 08/21/2021 with Mary SALCEDO, discussed and reviewed the chart. The patient slept 6-1/4 hours previous night. She has been fairly appropriate on the unit. We discussed discharge and after care plans at some length. Review of Systems: Impaired ambulation in wheelchair. No CV, , pulmonary, eye system symptoms on review. Mental Status Exam: The patient is reasonably oriented. Speech coherent. Abstraction fair. Computation impaired. Language function intact. Mood and affect is stable. No suicidal or homicidal ideation. Laboratory Data: Reviewed. Impression: Bipolar 1 disorder mixed with psychotic features in partial remission. Anxiety disorder unspecified. Impulse control disorder unspecified. Plan: Continue current psychotropics unchanged. Assessment: Vital Signs/I&O: Vital Signs Date Time Temp Pulse Resp B/P (MAP) Pulse Ox O2 Delivery O2 Flow Rate FiO2 08/22/21 06:27 97.6 80 20 154/89 (110) 93 08/21/21 15:40 Room Air I & O 0 08/21/21 08/21/21 08/22/21 15:00 23:00 07:00 Intake Total 1020 ml 840 ml Balance 1020 ml 840 ml Labs: Laboratory Tests Test 08/22/21 07:38 Glucose (Fingerstick) 134 mg/dL (70-99) H Current Medications: Meds: Laboratory Tests Test 08/22/21 07:38 Glucose (Fingerstick) 134 mg/dL Current Medications Medications (Trade) Dose Ordered Sig/Brynn Route PRN Reason Start Time Stop Time Status Last Admin Dose Admin Carbidopa/Levodopa (Sinemet 25/100) 1 tab QID PO 08/01/21 21:00 08/22/21 08:20 Citalopram Hydrobromide (CeleXA) 20 mg DAILY PO 08/02/21 09:00 08/01/21 21:37 DC Metformin HCl (Glucophage) 500 mg BIDWMEALS PO 08/02/21 08:00 08/22/21 08:20 Polyethylene Glycol (miraLAX) 17 gm PRN DAILY PRN PO CONSTIPATION 08/01/21 19:45 Prasugrel (Effient) 10 mg DAILY PO 08/02/21 09:00 08/22/21 08:20 Risperidone (RisperDAL) 0.5 mg TID PO 08/01/21 21:00 08/22/21 08:20 Trazodone HCl (Desyrel) 50 mg HS PO 08/01/21 21:00 08/21/21 21:08 Acetaminophen (Tylenol) 650 mg PRN Q4HRS PRN PO PAIN 08/01/21 20:30 08/21/21 17:23 Pioglitazone HCl (Actos) 15 mg DAILY PO 08/02/21 09:00 08/22/21 08:20 Multi-Ingredient Ointment (Analgesic [place]) 1 devan PRN QID PRN TP MUSCLE PAIN 08/01/21 21:30 08/08/21 08:52 DC Al Hydroxide/Mg Hydroxide (Mylanta Plus Xs) 15 ml PRN AFTMEALHC PRN PO DYSPEPSIA 08/01/21 21:30 Nystatin (Nystop) 1 devan BID TP 08/02/21 21:00 08/22/21 08:20 [place] Carbonate 300 mg HS PO 08/02/21 21:00 08/10/21 20:31 DC 08/09/21 20:44 Influenza Virus Vaccine Quadrival (Flulaval Quad [id number] Syringe) 0.5 ml ONCE ONCE VAX IM 08/09/21 09:00 08/09/21 09:01 DC 08/09/21 08:45 [place] Carbonate 450 mg HS PO 08/10/21 21:00 08/21/21 21:08 I have reviewed the current psychotropics carefully including drug interactions. Risk benefit ratio favors no change other than as noted in my dictated progress note. Diagnosis: Problems: (1) Impulse control disorder, unspecified (2) Anxiety disorder, unspecified (3) Bipolar disorder, current episode mixed, severe, with psychotic features (4) Bipolar 1 disorder, depressed, partial remission HERBER SCHMITZ MD Aug 22, 2021 09:58
[2021-08-22 16:32] VITALS: BP 159/95
[2021-08-22] MEDS: traZODone 50 MG TABLET. PO SCH (20:20)
[2021-08-22] MEDS: LITHIUM CARBONATE 300 MG TABLET PO SCH (20:20)
--- NOTE | 2021-08-22 22:01 | PDOC ---
Exam Note: Efren Note: Please also refer to the separate dictated note~for this date of service dictated separately.~Patient seen individually. Discussed the patient with Nursing staff reviewed the chart.~Reviewed interim history and current functioning. Reviewed vital signs,~Labs/ Radiology~and current medications noted below. Continue current treatment with the changes noted in the dictated addendum note Assessment: Vital Signs/I&O: Vital Signs Date Time Temp Pulse Resp B/P (MAP) Pulse Ox O2 Delivery O2 Flow Rate FiO2 08/22/21 16:32 98.6 80 18 159/95 (116) 94 08/21/21 15:40 Room Air I & O 08/21/21 08/21/21 08/22/21 15:00 23:00 07:00 Intake Total 1020 ml 840 ml Balance 1020 ml 840 ml Labs: Laboratory Tests Test 08/22/21 07:38 08/22/21 10:09 Glucose (Fingerstick) 134 mg/dL (70-99) H [place] Level 0.5 mmol/L (0.6-1.2) L [place] Last Dose Date 08/21/21 [place] Last Dose Time 2100 Current Medications: Meds: Laboratory Tests Test 08/22/21 07:38 08/22/21 10:09 Glucose (Fingerstick) 134 mg/dL [place] Level 0.5 mmol/L [place] Last Dose Date 08/21/21 [place] Last Dose Time 2100 Current Medications Medications (Trade) Dose Ordered Sig/Brynn Route PRN Reason Start Time Stop Time Status Last Admin Dose Admin Carbidopa/Levodopa (Sinemet 25/100) 1 tab QID PO 08/01/21 21:00 08/22/21 20:20 Citalopram Hydrobromide (CeleXA) 20 mg DAILY PO 08/02/21 09:00 08/01/21 21:37 DC Metformin HCl (Glucophage) 500 mg BIDWMEALS PO 08/02/21 08:00 08/22/21 17:26 Polyethylene Glycol (miraLAX) 17 gm PRN DAILY PRN PO CONSTIPATION 08/01/21 19:45 Prasugrel (Effient) 10 mg DAILY PO 08/02/21 09:00 08/22/21 08:20 Risperidone (RisperDAL) 0.5 mg TID PO 08/01/21 21:00 08/22/21 20:20 Trazodone HCl (Desyrel) 50 mg HS PO 08/01/21 21:00 08/22/21 20:20 Acetaminophen (Tylenol) 650 mg PRN Q4HRS PRN PO PAIN 08/01/21 20:30 08/21/21 17:23 Pioglitazone HCl (Actos) 15 mg DAILY PO 08/02/21 09:00 08/22/21 08:20 Multi-Ingredient Ointment (Analgesic [place]) 1 devan PRN QID PRN TP MUSCLE PAIN 08/01/21 21:30 08/08/21 08:52 DC Al Hydroxide/Mg Hydroxide (Mylanta Plus Xs) 15 ml PRN AFTMEALHC PRN PO DYSPEPSIA 08/01/21 21:30 Nystatin (Nystop) 1 devan BID TP 08/02/21 21:00 08/22/21 20:20 [place] Carbonate 300 mg HS PO 08/02/21 21:00 08/10/21 20:31 DC 08/09/21 20:44 Influenza Virus Vaccine Quadrival (Flulaval Quad [id number] Syringe) 0.5 ml ONCE ONCE VAX IM 08/09/21 09:00 08/09/21 09:01 DC 08/09/21 08:45 [place] Carbonate 450 mg HS PO 08/10/21 21:00 08/22/21 20:20 I have reviewed the current psychotropics carefully including drug interactions. Risk benefit ratio favors no change other than as noted in my dictated progress note. Diagnosis: Problems: (1) Impulse control disorder, unspecified (2) Anxiety disorder, unspecified (3) Bipolar 1 disorder, depressed, partial remission HERBER SCHMITZ MD Aug 22, 2021 22:01
[2021-08-23 06:08] VITALS: BP 151/88
[2021-08-23] MEDS: metFORMIN 500 MG TABLET PO SCH (08:12)
[2021-08-23] MEDS: PIOGLITAZONE 15 MG TABLET. PO SCH (08:12)
[2021-08-23] MEDS: CARBIDOPA/LEVODOPA 25/100MG TABLET PO SCH ×2 (08:12→13:00)
[2021-08-23] MEDS: risperiDONE 0.5 MG TABLET. PO SCH ×2 (08:12→14:00)
[2021-08-23] MEDS: PRASUGREL 10 MG TABLET. PO SCH (08:13)
[2021-08-23] MEDS: NYSTATIN TOPICAL POWDER 15GM BOTTLE. TP SCH (08:15)
--- NOTE | 2021-08-23 22:09 | PDOC ---
Exam Note: Efren Note: Please also refer to the separate dictated note~for this date of service dictated separately.~Patient seen individually. Discussed the patient with Nursing staff reviewed the chart.~Reviewed interim history and current functioning. Reviewed vital signs,~Labs/ Radiology~and current medications noted below. Continue current treatment with the changes noted in the dictated addendum note Assessment: Vital Signs/I&O: Vital Signs Date Time Temp Pulse Resp B/P (MAP) Pulse Ox O2 Delivery O2 Flow Rate FiO2 08/23/21 06:08 98.2 85 16 151/88 (109) 98 08/21/21 15:40 Room Air I & O 08/22/21 08/22/21 08/23/21 15:00 23:00 07:00 Intake Total 960 ml 480 ml Balance 960 ml 480 ml Labs: Laboratory Tests Test 08/23/21 07:08 08/23/21 07:38 [place] Level 0.6 mmol/L (0.6-1.2) [place] Last Dose Date 08/22/21 [place] Last Dose Time 2000 Glucose (Fingerstick) 158 mg/dL (70-99) H Current Medications: Meds: Laboratory Tests Test 08/23/21 07:08 08/23/21 07:38 [place] Level 0.6 mmol/L [place] Last Dose Date 08/22/21 [place] Last Dose Time 2000 Glucose (Fingerstick) 158 mg/dL Current Medications Medications (Trade) Dose Ordered Sig/Brynn Route PRN Reason Start Time Stop Time Status Last Admin Dose Admin Carbidopa/Levodopa (Sinemet 25/100) 1 tab QID PO 08/01/21 21:00 08/23/21 14:47 DC 08/23/21 13:00 Citalopram Hydrobromide (CeleXA) 20 mg DAILY PO 08/02/21 09:00 08/01/21 21:37 DC Metformin HCl (Glucophage) 500 mg BIDWMEALS PO 08/02/21 08:00 08/23/21 14:47 DC 08/23/21 08:12 Polyethylene Glycol (miraLAX) 17 gm PRN DAILY PRN PO CONSTIPATION 08/01/21 19:45 08/23/21 14:47 DC Prasugrel (Effient) 10 mg DAILY PO 08/02/21 09:00 08/23/21 14:47 DC 08/23/21 08:13 Risperidone (RisperDAL) 0.5 mg TID PO 08/01/21 21:00 08/23/21 14:47 DC 08/23/21 14:00 Trazodone HCl (Desyrel) 50 mg HS PO 08/01/21 21:00 08/23/21 14:47 DC 08/22/21 20:20 Acetaminophen (Tylenol) 650 mg PRN Q4HRS PRN PO PAIN 08/01/21 20:30 08/23/21 14:47 DC 08/21/21 17:23 Pioglitazone HCl (Actos) 15 mg DAILY PO 08/02/21 09:00 08/23/21 14:47 DC 08/23/21 08:12 Multi-Ingredient Ointment (Analgesic [place]) 1 devan PRN QID PRN TP MUSCLE PAIN 08/01/21 21:30 08/08/21 08:52 DC Al Hydroxide/Mg Hydroxide (Mylanta Plus Xs) 15 ml PRN AFTMEALHC PRN PO DYSPEPSIA 08/01/21 21:30 08/23/21 14:47 DC Nystatin (Nystop) 1 devan BID TP 08/02/21 21:00 08/23/21 14:47 DC 08/23/21 08:15 [place] Carbonate 300 mg HS PO 08/02/21 21:00 08/10/21 20:31 DC 08/09/21 20:44 Influenza Virus Vaccine Quadrival (Flulaval Quad [id number] Syringe) 0.5 ml ONCE ONCE VAX IM 08/09/21 09:00 08/09/21 09:01 DC 08/09/21 08:45 [place] Carbonate 450 mg HS PO 08/10/21 21:00 08/23/21 14:47 DC 08/22/21 20:20 I have reviewed the current psychotropics carefully including drug interactions. Risk benefit ratio favors no change other than as noted in my dictated progress note. Diagnosis: Problems: (1) Impulse control disorder, unspecified (2) Anxiety disorder, unspecified (3) Bipolar disorder, current episode mixed, severe, with psychotic features (4) Bipolar 1 disorder, depressed, partial remission HERBER SCHMITZ MD Aug 23, 2021 22:09
--- NOTE | 2021-08-23 22:55 | DS ---
DATE OF DISCHARGE: 08/23/2021 DISCHARGE SUMMARY/PSYCHIATRIC PROGRESS NOTE This note covers elements not covered in my initial note, 08/23/2021. REASON FOR ADMISSION: Please refer to the admission history for details. Briefly, the patient is a 71-year-old female referred to us from [facility] by her primary care physician and psychiatrist, on account of worsening mood swings within the context of her bipolar disorder and voicing suicidal ideation with a plan within the context of multiple suicide attempts in the past and a failure of outpatient psychiatric interventions with Dr. Machado, psychiatrist. Reportedly, the patient had responded best to lithium in the past, but this was stopped due to her serious overdose on it at that time. SIGNIFICANT FINDINGS AND CLINICAL COURSE: Following admission, the patient was seen daily individually by myself from a psychiatric standpoint, medical followup with Dr. Benavidez/Dr. Iverson. The patient's records were received from Dr. Machado and we had also directly asked Dr. Machado if he would support us restarting her on lithium for the bipolar disorder given being resistant to treatment with other mood stabilizers. Dr. Machado was supportive of this and lithium was initiated and stabilized at 450 mg at bedtime with a level of 0.7. Repeat level was 0.5, but this was done about 14 hours post last dosage thus accounting for it. Gradually mood appeared to improve, paranoia improved and she was on Risperdal 0.5 mg t.i.d., trazodone 50 mg at bedtime, remained on Sinemet 25/100 four times a day. Gradually mood improved. No suicidal ideation was noted. She was pleasant, verbal, interactive. REVIEW OF SYSTEMS: No CV, , pulmonary, eye, ENT system symptoms on review prior to discharge. MENTAL STATUS EXAMINATION: Reasonably oriented. Speech is coherent. Abstraction fair. Computation impaired. Language function intact. Mood and affect improved, euthymic. LABORATORY DATA: Reviewed. FINAL DIAGNOSES: Bipolar 1 disorder, mixed with psychotic features, in partial remission; anxiety disorder, unspecified; impulse control disorder, unspecified. Rest unchanged from admission. DISCHARGE MEDICATIONS: Please refer to the MRAD. DISCHARGE INSTRUCTIONS: Outpatient psychiatric and medical followup at the [facility]. Time for discharge day management greater than 30 minutes. KURT/FRANKLIN DR: [place] TID: [id number]
--- NOTE | 2021-08-24 08:20 | PDOC ---
Exam Note: Efren Note: This note is a late entry for 08/22/2021 covers elements not covered in my initial note. Subjective: The patient was seen individually in the evening of 08/22/2021 with Saritha SALCEDO, discussed and reviewed the chart. The patient slept 7 hours previous night. Her lithium level was 0.5 but this was drawn about 14 hours after the last dosage and we will repeat it in the morning of 08/23 prior to her discharge. I met with her in her room. Review of Systems: Impaired ambulation in wheelchair. No CV, , pulmonary, eye, ENT system symptoms on review. Mental Status Exam: The patient is reasonably oriented. Speech coherent. Abstraction fair. Computation impaired. Language function intact. Attention span short. Mood and affect appears euthymic and affect is mood congruent. No suicidal or homicidal ideation. Laboratory Data: Reviewed. Impression: Bipolar 1 disorder mixed with psychotic features in partial remission. Anxiety disorder unspecified. Impulse control disorder unspecified. Plan: We had lengthy discussion about outpatient follow up, need for lithium levels, interaction of lithium and ibuprofen and dehydration. She had many questions which I answered. Continue current psychotropics unchanged. Adjust as clinically indicated. Repeat lithium level in the morning. Assessment: Vital Signs/I&O: Vital Signs Date Time Temp Pulse Resp B/P (MAP) Pulse Ox O2 Delivery O2 Flow Rate FiO2 08/23/21 06:08 98.2 85 16 151/88 (109) 98 08/21/21 15:40 Room Air I & O 08/23/21 08/23/21 08/24/21 15:00 23:00 07:00 Intake Total 720 ml Balance 720 ml Current Medications: Meds: Current Medications Medications (Trade) Dose Ordered Sig/Brynn Route PRN Reason Start Time Stop Time Status Last Admin Dose Admin Carbidopa/Levodopa (Sinemet 25/100) 1 tab QID PO 08/01/21 21:00 08/23/21 14:47 DC 08/23/21 13:00 Citalopram Hydrobromide (CeleXA) 20 mg DAILY PO 08/02/21 09:00 08/01/21 21:37 DC Metformin HCl (Glucophage) 500 mg BIDWMEALS PO 08/02/21 08:00 08/23/21 14:47 DC 08/23/21 08:12 Polyethylene Glycol (miraLAX) 17 gm PRN DAILY PRN PO CONSTIPATION 08/01/21 19:45 08/23/21 14:47 DC Prasugrel (Effient) 10 mg DAILY PO 08/02/21 09:00 08/23/21 14:47 DC 08/23/21 08:13 Risperidone (RisperDAL) 0.5 mg TID PO 08/01/21 21:00 08/23/21 14:47 DC 08/23/21 14:00 Trazodone HCl (Desyrel) 50 mg HS PO 08/01/21 21:00 08/23/21 14:47 DC 08/22/21 20:20 Acetaminophen (Tylenol) 650 mg PRN Q4HRS PRN PO PAIN 08/01/21 20:30 08/23/21 14:47 DC 08/21/21 17:23 Pioglitazone HCl (Actos) 15 mg DAILY PO 08/02/21 09:00 08/23/21 14:47 DC 08/23/21 08:12 Multi-Ingredient Ointment (Analgesic [place]) 1 devan PRN QID PRN TP MUSCLE PAIN 08/01/21 21:30 08/08/21 08:52 DC Al Hydroxide/Mg Hydroxide (Mylanta Plus Xs) 15 ml PRN AFTMEALHC PRN PO DYSPEPSIA 08/01/21 21:30 08/23/21 14:47 DC Nystatin (Nystop) 1 devan BID TP 08/02/21 21:00 08/23/21 14:47 DC 08/23/21 08:15 Lynch Carbonate 300 mg HS PO 08/02/21 21:00 08/10/21 20:31 DC 08/09/21 20:44 Influenza Virus Vaccine Quadrival (Flulaval Quad [id number] Syringe) 0.5 ml ONCE ONCE VAX IM 08/09/21 09:00 08/09/21 09:01 DC 08/09/21 08:45 Lynch Carbonate 450 mg HS PO 08/10/21 21:00 08/23/21 14:47 DC 08/22/21 20:20 I have reviewed the current psychotropics carefully including drug interactions. Risk benefit ratio favors no change other than as noted in my dictated progress note. Diagnosis: Problems: (1) Impulse control disorder, unspecified (2) Anxiety disorder, unspecified (3) Bipolar disorder, current episode mixed, severe, with psychotic features (4) Bipolar 1 disorder, depressed, partial remission HERBER SCHMITZ MD Aug 24, 2021 08:20
== END 2021-08-23 14:46 | disposition home health service (06) | DRG 885 ==
LOC: GEROPSY 19:26
PROVIDERS: ADMIT Psychiatry & Neurology Psychiatry; ATTEND Psychiatry & Neurology Psychiatry
DX: F31.64 Bipolar disorder, current episode mixed, severe, with psychotic features (principal); R45.851 Suicidal ideations; Z20.822 Contact with and (suspected) exposure to COVID-19; E11.9 Type 2 diabetes mellitus without complications; E66.9 Obesity, unspecified; F41.1 Generalized anxiety disorder; F63.9 Impulse disorder, unspecified; G20 Parkinson's disease; I10 Essential (primary) hypertension; I25.10 Atherosclerotic heart disease of native coronary artery without angina pectoris; I25.2 Old myocardial infarction; Z79.899 Other long term (current) drug therapy; Z81.8 Family history of other mental and behavioral disorders; Z91.51 Personal history of suicidal behavior; M19.90 Unspecified osteoarthritis, unspecified site; Z88.6 Allergy status to analgesic agent; Z88.8 Allergy status to other drugs, medicaments and biological substances; Z68.38 Body mass index [BMI] 38.0-38.9, adult
CPT/HCPCS: 36415; 80053; 80061; 80178; 81001; 82306; 82607; 82947; 83036; 83540; 83550; 83735; 84436; 84443; 84480; 85025; 85027; 85379; 86592; 90471; 90686; 93005; U0003; 97116; 97530